=== PATIENT | female | born 1990 | race Caucasian/White ===

== ENCOUNTER → 2017-04-17 | Outpatient (REF) | payer OTHER ==
[~2017-04-17] MED LIST: ACET50TA PO; ANUS2.5C2 TOP; DOCU10ELUD PO; IBUP80TA PO; MOM30SS PO; PERCOCET PO; PRENTAB74 PO; ULTR50TA PO
== END ==
LOC: M LAB REF 17:56
PROVIDERS: ATTEND Physician Assistant
DX: M54.5 Low back pain (principal)

== ENCOUNTER 2017-06-04 14:33 | Emergency (ER) | payer OTHER | END 2017-06-04 16:17 | disposition home or self-care (01) | LOC: M ED 14:33 | DX: J02.0 Streptococcal pharyngitis (principal); L02.411 Cutaneous abscess of right axilla; J45.909 Unspecified asthma, uncomplicated; F17.210 Nicotine dependence, cigarettes, uncomplicated; Z88.2 Allergy status to sulfonamides; Z88.1 Allergy status to other antibiotic agents | CPT/HCPCS: 87880 ==

== ENCOUNTER → 2017-09-13 | Outpatient (CLI) | payer OTHER | LOC: M RAD 12:18 | DX: Z3A.13 13 weeks gestation of pregnancy (principal) | CPT/HCPCS: 76801 ==

== ENCOUNTER → 2017-09-24 | Outpatient (CLI) | payer OTHER ==
[2017-09-24 17:13] LABS: BASO % 0.3 % (0.0-1.0); EOS # 0.1 10^3/uL (0.0-0.50); EOS % 1.2 % (0.0-3.0); HEMATOCRIT 38.8 % (36.0-47.0); HEMOGLOBIN 12.9 g/dl (12.0-15.5); IMMATURE GRANULOCYTE % 0.3 % (0-3.0); LYMPH # 1.6 10^3/uL (1.5-6.5); MEAN CORPUSCULAR HEMOGLOBIN 29.8 pg (27.0-33.0); MEAN CORPUSCULAR HGB CONC 33.2 g/dl (32.0-36.5); MEAN CORPUSCULAR VOLUME 89.6 fl (80.0-96.0); MONO # 0.6 10^3/uL (0.0-0.8); NEUTROPHILS # 4.6 10^3/uL (1.8-7.7); NEUTROPHILS % 67.2 % (36.0-66.0); PLATELET COUNT, AUTOMATED 226 10^3/uL (150-450); RED BLOOD COUNT 4.33 10^6/uL (4.00-5.40); RED CELL DISTRIBUTION WIDTH 13.1 % (11.5-14.5); WHITE BLOOD COUNT 6.9 10^3/uL (4.0-10.0)
[2017-09-24 17:26] LABS: FREE T4 1.08 NG/DL (0.76-1.46); THYROID STIMULATING HORMONE 0.879 uIU/ML (0.358-3.740)
[2017-09-24 18:15] LABS: HBsAg Prenatal NEGATIVE (NEGATIVE); RUBELLA IgG QUALITATIVE IMMUNE (IMMUNE)
[2017-09-24 18:43] LABS: HEPATITIS C VIRUS ABY INDEX 0.1 INDEX (<0.8)
[2017-09-24 18:44] LABS: HIV 1&2 SCREEN CENTAUR NEGATIVE (NEGATIVE)
== END ==
LOC: M SMT 13:09
DX: Z34.81 Encounter for supervision of other normal pregnancy, first trimester (principal); Z3A.13 13 weeks gestation of pregnancy
CPT/HCPCS: 84443

== ENCOUNTER → 2017-10-08 | Outpatient (REF) | payer OTHER | LOC: M LAB REF 16:53 | DX: Z34.82 Encounter for supervision of other normal pregnancy, second trimester (principal) ==

== ENCOUNTER → 2017-10-11 | Outpatient (REF) | payer OTHER ==
[2017-10-11 15:36] LABS: CHLAMYDIA DNA AMPLIFICATION NEGATIVE (NEGATIVE); GC DNA AMPLIFICATION NEGATIVE (NEGATIVE)
== END ==
LOC: M LAB REF 12:54
DX: Z34.82 Encounter for supervision of other normal pregnancy, second trimester (principal); Z3A.00 Weeks of gestation of pregnancy not specified

== ENCOUNTER → 2017-10-20 | Outpatient (CLI) | payer OTHER | LOC: M RAD 15:08 | DX: Z34.82 Encounter for supervision of other normal pregnancy, second trimester (principal); Z36.89 Encounter for other specified antenatal screening; Z3A.18 18 weeks gestation of pregnancy | CPT/HCPCS: 76811 ==

== ENCOUNTER → 2017-11-05 | Outpatient (REF) | payer OTHER | LOC: M LAB REF 16:57 | DX: Z34.82 Encounter for supervision of other normal pregnancy, second trimester (principal); Z3A.00 Weeks of gestation of pregnancy not specified ==

== ENCOUNTER → 2017-11-25 | Outpatient (CLI) | payer OTHER | LOC: M RAD 11:27 | DX: Z34.82 Encounter for supervision of other normal pregnancy, second trimester (principal); Z36.89 Encounter for other specified antenatal screening; Z3A.24 24 weeks gestation of pregnancy | CPT/HCPCS: 76816 ==

== ENCOUNTER → 2017-12-14 | Outpatient (CLI) | payer OTHER | LOC: M RAD 10:35 | DX: Z34.82 Encounter for supervision of other normal pregnancy, second trimester (principal); Z36.89 Encounter for other specified antenatal screening; Z3A.27 27 weeks gestation of pregnancy | CPT/HCPCS: 76816 ==

== ENCOUNTER 2017-12-27 11:41 | Emergency (ER) | payer OTHER ==
[2017-12-27] MEDS: LIDOCAINE 2% MDV 20 ML VIAL SC (14:48)
== END 2017-12-27 14:59 | disposition home or self-care (01) ==
LOC: M ED 11:41
DX: O99.713 Diseases of the skin and subcutaneous tissue complicating pregnancy, third trimester (principal); L02.214 Cutaneous abscess of groin; L73.2 Hidradenitis suppurativa; Z88.1 Allergy status to other antibiotic agents; O99.333 Smoking (tobacco) complicating pregnancy, third trimester; F17.201 Nicotine dependence, unspecified, in remission; Z3A.29 29 weeks gestation of pregnancy
CPT/HCPCS: 87186

== ENCOUNTER → 2017-12-30 | Outpatient (CLI) | payer OTHER ==
[2017-12-30 13:12] LABS: HEMATOCRIT 34.7 % (36.0-47.0); HEMOGLOBIN 11.6 g/dl (12.0-15.5); MEAN CORPUSCULAR HEMOGLOBIN 31.2 pg (27.0-33.0); MEAN CORPUSCULAR HGB CONC 33.4 g/dl (32.0-36.5); MEAN CORPUSCULAR VOLUME 93.3 fl (80.0-96.0); PLATELET COUNT, AUTOMATED 353 10^3/uL (150-450); RED BLOOD COUNT 3.72 10^6/uL (4.00-5.40); RED CELL DISTRIBUTION WIDTH 13.6 % (11.5-14.5); WHITE BLOOD COUNT 8.4 10^3/uL (4.0-10.0)
[2017-12-30 13:33] LABS: GLUCOSE CHALLENGE TEST 1 HOUR 127 MG/DL (LESS THAN 140)
[2018-01-03 09:00] LABS: TYPE AND SCREEN 1 1
== END ==
LOC: M SMT 09:47
DX: Z34.82 Encounter for supervision of other normal pregnancy, second trimester (principal); Z36.89 Encounter for other specified antenatal screening
CPT/HCPCS: 82950

== ENCOUNTER 2018-02-09 19:48 | Inpatient (IN) | payer OTHER ==
[2018-02-09] MEDS ORDERED: LR 1,000 ML IV (20:14)
[2018-02-09 21:10] LABS: HEMATOCRIT 34.9 % (36.0-47.0); HEMOGLOBIN 11.6 g/dl (12.0-15.5); MEAN CORPUSCULAR HGB CONC 33.2 g/dl (32.0-36.5); MEAN CORPUSCULAR VOLUME 93.3 fl (80.0-96.0); PLATELET COUNT, AUTOMATED 221 10^3/uL (150-450); RED BLOOD COUNT 3.74 10^6/uL (4.00-5.40); RED CELL DISTRIBUTION WIDTH 13.9 % (11.5-14.5)
[2018-02-09 21:28] LABS: INR 0.94; PARTIAL THROMBOPLASTIN TIME 25.8 SECONDS (25.4-37.6); PROTHROMBIN TIME 12.7 SECONDS (12.1-14.4)
[2018-02-09] MEDS: MORPHINE 4 MG/ML 1ML VIAL/SYRINGE (J2270) IV (21:45)
[2018-02-09] MEDS ORDERED: MORPHINE 4 MG/ML 1ML VIAL/SYRINGE (J2270) As Ordered (21:46)
[2018-02-09 21:58] LABS: THYROXINE (T4) 14.1 UG/DL (4.5-12.0)
[2018-02-09] MEDS ORDERED: BICITRA 30ML SOLN UDC As Ordered (23:13)
[2018-02-09] MEDS ORDERED: ceFAZolin 2 GM/D5W 50 ML IV BAG (J0690 PER 500MG) As Ordered (23:33)
[2018-02-09] MEDS ORDERED: OXYTOCIN INJ 10 UNITS/ML VIAL (J2590) As Ordered (23:35)
[2018-02-09] MEDS ORDERED: ONDANSETRON 4MG/2ML VIAL (J2405) As Ordered (23:35)
[2018-02-09] MEDS ORDERED: MORPHINE PRES-FREE INJ 10 MG/10 ML VIAL (J2274) As Ordered (23:35)
[2018-02-09] MEDS ORDERED: MIDAZOLAM INJ 2 MG/2 ML VIAL (J2250) As Ordered (23:35)
[2018-02-10] MEDS ORDERED: ONDANSETRON 4MG/2ML VIAL (J2405) IV ×3 (00:03→04:15)
[2018-02-10] MEDS ORDERED: NALOXONE INJ 0.4 MG/1 ML VIAL (J2310) IV ×2 (00:03)
[2018-02-10] MEDS ORDERED: METOCLOPRAMIDE INJ 10MG/2ML VIAL (J2765) IV ×2 (00:03→04:15)
[2018-02-10] MEDS ORDERED: ePHEDrine SULFATE 25 MG/5 ML(5MG/ML) SYRINGE As Ordered (00:11)
[2018-02-10] MEDS ORDERED: OXYTOCIN INJ 10 UNITS/ML VIAL (J2590) As Ordered (00:35)
[2018-02-10] MEDS ORDERED: PHENYLephrine HCL 500 MCG/5 ML (100MCG/ML) SYRINGE (J2370) As Ordered (00:46)
[2018-02-10] MEDS: OXYTOCIN DRIP 30 UNITS in APPROPRIATE DILUENT 1 EA IV (01:11)
[2018-02-10] MEDS ORDERED: MEASLES,MUMPS,RUBELLA VACCINE INJ (MMR-II) (90707) SC (01:15)
[2018-02-10] MEDS ORDERED: DOCUSATE SODIUM 100 MG CAP PO (01:15)
[2018-02-10] MEDS ORDERED: PERCOCET 5MG/325MG TAB PO ×2 (01:15→04:15)
[2018-02-10] MEDS ORDERED: OXYTOCIN 30 UNITS IN 0.9% NaCl 500ML IV BAG (J2590) As Ordered (01:33)
[2018-02-10] MEDS ORDERED: KETOROLAC 30 MG/ML VIAL (J1885) As Ordered (01:44)
[2018-02-10] MEDS: KETOROLAC 30 MG/ML VIAL (J1885) IV ×3 (02:08→14:19)
[2018-02-10] MEDS ORDERED: PERCOCET 5MG/325MG TAB As Ordered (02:18)
[2018-02-10] MEDS: PERCOCET 5MG/325MG TAB PO ×2 (02:22→17:29)
[2018-02-10] MEDS ORDERED: fentaNYL 100 MCG/2 ML INJECTION (J3010) IV (04:15)
[2018-02-10] MEDS ORDERED: KETOROLAC 30 MG/ML VIAL (J1885) IV (04:15)
[2018-02-10] MEDS ORDERED: MEPERIDINE INJ 25 MG/ML VIAL (J2175) IV (04:15)
[2018-02-10] MEDS: NALBUPHINE HCL 10 MG/ML AMP (J2300) IV (04:27)
[2018-02-10] MEDS: LR 1,000 ML IV (04:40)
[2018-02-10] MEDS: PRENATAL VITAMINS CHEWABLE TABLET PO (08:49)
[2018-02-10] MEDS: INFLUENZA QUADRIVALENT PF VACCINE 0.5ML SYRINGE (90686) IM (08:49)
[2018-02-10] MEDS: diphenhydrAMINE INJ 50MG/ML VIAL (J1200) IV (11:35)
[2018-02-10 22:39] LABS: FETAL DEX (KLEIHAUER BETKE) 1 1
[2018-02-10] MEDS: IBUPROFEN 800 MG TAB PO (22:51)
[2018-02-10] MEDS: RHOGAM 300 MCG (1500 IU) INJ (J2790) IM (22:53)
[2018-02-11] MEDS: PERCOCET 5MG/325MG TAB PO (03:15)
[2018-02-11] MEDS: IBUPROFEN 800 MG TAB PO (06:14)
[2018-02-11] MEDS ORDERED: medroxyPROGESTERone ACET IM SUSP 150 MG/ML VIAL (J1050) IM (07:30)
[2018-02-11 07:47] LABS: HEMATOCRIT 25.6 % (36.0-47.0); MEAN CORPUSCULAR HEMOGLOBIN 31.3 pg (27.0-33.0); MEAN CORPUSCULAR HGB CONC 33.2 g/dl (32.0-36.5); MEAN CORPUSCULAR VOLUME 94.1 fl (80.0-96.0); PLATELET COUNT, AUTOMATED 236 10^3/uL (150-450); RED BLOOD COUNT 2.72 10^6/uL (4.00-5.40); RED CELL DISTRIBUTION WIDTH 14.4 % (11.5-14.5); WHITE BLOOD COUNT 8.1 10^3/uL (4.0-10.0)
[2018-02-11 07:49] LABS: HEMOGLOBIN 8.5 g/dl (12.0-15.5)
[2018-02-11] MEDS: PRENATAL VITAMINS CHEWABLE TABLET PO (08:58)
[2018-02-15 00:07] LABS: ANTI PARVO VIRUS LEVEL IGG 0.4 index (0.0-0.8); ANTI PARVO VIRUS LEVEL IgM 0.1 index (0.0-0.8); BETA-2 GLYCOPROTEIN I ABY IGA <9 (0-25); BETA-2 GLYCOPROTEIN I ABY IGG <9 (0-20); BETA-2 GLYCOPROTEIN I ABY IGM <9 (0-32); CARDIOLIPIN IGA ANTIBODY <9 APL U/mL (0-11); CARDIOLIPIN IGG ANTIBODY <9 GPL U/mL (0-14); CARDIOLIPIN IGM ANTIBODY <9 MPL U/mL (0-12)
[2018-02-15 11:12] LABS: DRVV SCREEN 46.2 SEC; PTT LUPUS TYPE ANTICOAG SCREEN 1.1 (0-1.2)
== END 2018-02-11 09:30 | disposition home or self-care (01) | DRG 540 ==
LOC: M LDO 19:48 → M OBS 02-10 03:30 → M LDI 20:09 → M OBS 02-10 05:53
PROVIDERS: Specialist
PROC: 10D00Z1 Extraction of Products of Conception, Low, Open Approach (ICD-10-PCS; principal; 2018-02-09 23:52)
DX: O45.93 Premature separation of placenta, unspecified, third trimester (principal); F17.210 Nicotine dependence, cigarettes, uncomplicated; O34.211 Maternal care for low transverse scar from previous cesarean delivery; Z3A.34 34 weeks gestation of pregnancy; Z37.1 Single stillbirth; O99.334 Smoking (tobacco) complicating childbirth; O36.4XX0 Maternal care for intrauterine death, not applicable or unspecified

== ENCOUNTER → 2018-10-20 | Outpatient (CLI) | payer OTHER ==
[~2018-10-20] MED LIST changes: -ACET50TA PO; +AUGM875T28 PO; +CLEO300C2 PO; -DOCU10ELUD PO; +DOCU5LIQ PO; +LORA-674 PO; +MAPA500T17 PO; +MAPA500T2 PO; +MOTR200T44 PO; +OXYC1TAB23 PO; +PREN1CHW4 PO; +VENTAER INH
--- NOTE | 2018-10-20 11:49 | REP ---
Clinical: Dating and viability. Technique: Transabdominal and transvaginal first trimester obstetrical ultrasound with color Doppler evaluation. Findings: Normal anteverted uterus measures 0.9 x 4.4 x 5.3 cm . The endometrial complex measures 16.5 mm thickness. No intrauterine identified. Bilateral ovaries are normal in appearance and vascularity without evidence for torsion. Right ovary measures 3.5 x 2.5 x 3.4 cm with 2.2 cm possibly representing corpus luteum ; R I = 0.45 . Left ovary measures 2.9 x 1.9 x 2.7 cm ; R I = 0.51 . No pelvic fluid or adnexal mass lesion . Impression: 1. No intrauterine identified. Differential diagnosis includes early as well as missed and less likely ectopic. Correlation with serial HCG levels and reevaluation may be warranted. Electronically Signed by Fabrice Perry MD 10/20/2018 11:40 A
== END ==
LOC: M RAD 10:17
PROVIDERS: ATTEND Nurse Practitioner Family
DX: Z32.01 Encounter for pregnancy test, result positive (principal); Z36.89 Encounter for other specified antenatal screening

== ENCOUNTER → 2018-10-21 | Outpatient (CLI) | payer OTHER | LOC: M LAB 10:16 | PROVIDERS: ATTEND Nurse Practitioner Family | DX: Z32.01 Encounter for pregnancy test, result positive (principal) ==

== ENCOUNTER 2018-10-22 14:56 | Emergency (ER) | payer OTHER ==
[~2018-10-22] VITALS: Ht 154.9 cm; Wt 81.8 kg
[~2018-10-22 14:56] MED LIST changes: -LORA-674 PO; -VENTAER INH
[2018-10-22] MEDS ORDERED: LORA-674 PO (15:23)
[2018-10-22 15:38] LABS: BASO # 0.1 10^3/uL (0.0-0.2); BASO % 0.5 % (0.0-1.0); EOS # 0.2 10^3/uL (0.0-0.50); EOS % 1.8 % (0.0-3.0); HEMOGLOBIN 13.8 g/dl (12.0-15.5); LYMPH # 2.9 10^3/uL (1.5-6.5); LYMPH % 26.7 % (24.0-44.0); MEAN CORPUSCULAR HEMOGLOBIN 26.4 pg (27.0-33.0); MEAN CORPUSCULAR HGB CONC 32.1 g/dl (32.0-36.5); MEAN CORPUSCULAR VOLUME 82.4 fl (80.0-96.0); MONO % 9.4 % (0.0-5.0); NEUTROPHILS # 6.7 10^3/uL (1.8-7.7); NEUTROPHILS % 61.2 % (36.0-66.0); PLATELET COUNT, AUTOMATED 403 10^3/uL (150-450); RED BLOOD COUNT 5.22 10^6/uL (4.00-5.40)
[2018-10-22 15:43] LABS: VENOUS HCO3 23.9 MEQ/L (23.0-27.0); VENOUS O2 SATURATION 51.5 % (60.0-80.0); VENOUS PARTIAL PRESSURE CO2 45.1 mmHg (38.0-50.0); VENOUS PARTIAL PRESSURE O2 29.2 mmHg (30.0-50.0); VENOUS PH 7.342 UNITS (7.330-7.430); VENOUS STANDARD HCO3 21.7 MEQ/L; VENOUS TOTAL CO2 25.3 MEQ/L (24.0-28.0)
[2018-10-22 16:07] LABS: INR 0.92; PROTHROMBIN TIME 12.5 SECONDS (12.1-14.4)
[2018-10-22 16:19] LABS: ALBUMIN 3.4 GM/DL (3.2-5.2); ALT/SGPT 23 U/L (12-78); BILIRUBIN,DIRECT 0.2 MG/DL (0.0-0.2); BILIRUBIN,TOTAL 0.6 MG/DL (0.2-1.0); BLOOD UREA NITROGEN 4 MG/DL (7-18); CALCIUM LEVEL 8.2 MG/DL (8.5-10.1); CARBON DIOXIDE LEVEL 26 MEQ/L (21-32); CHLORIDE LEVEL 108 MEQ/L (98-107); CREATININE FOR GFR 0.68 MG/DL (0.55-1.30); GLOMERULAR FILTRATION RATE > 60.0 (>60); GLUCOSE, FASTING 88 MG/DL (70-100); HCG, SERUM QUANTITATIVE 897 MIU/ML; SODIUM LEVEL 141 MEQ/L (136-145); THYROXINE (T4) 12.6 UG/DL (4.5-12.0); TOTAL PROTEIN 6.8 GM/DL (6.4-8.2)
[2018-10-22] MEDS ORDERED: IPRATROPIUM 0.5MG/ALBUTEROL 2.5MG INH SOL UD 3ML (DUONEB)(J7620) NEB ONE (17:00)
--- NOTE | 2018-10-22 17:39 | REP ---
Clinical: Shortness of breath . Comparison: None . Technique: PA Findings: The mediastinum and cardiac silhouette are normal. The lung rodarte are clear and without acute consolidation, effusion, or pneumothorax. The skeletal structures are intact and normal. Impression: 1. No acute cardiopulmonary process. Electronically Signed by Fabrice Perry MD 10/22/2018 05:31 P
[2018-10-22 17:49] VITALS: BP 129/66
[2018-10-22] MEDS ORDERED: VENTAER INH (17:56)
--- NOTE | 2018-10-22 19:41 | ECGEPIP ---
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
== END 2018-10-22 18:03 | disposition home or self-care (01) ==
LOC: M ED 14:56
DX: O99.511 Diseases of the respiratory system complicating pregnancy, first trimester (principal); J45.901 Unspecified asthma with (acute) exacerbation; O99.341 Other mental disorders complicating pregnancy, first trimester; F41.9 Anxiety disorder, unspecified; O99.331 Smoking (tobacco) complicating pregnancy, first trimester; F17.210 Nicotine dependence, cigarettes, uncomplicated; Z88.2 Allergy status to sulfonamides; Z79.899 Other long term (current) drug therapy; Z3A.00 Weeks of gestation of pregnancy not specified

== ENCOUNTER → 2018-10-25 | Outpatient (CLI) | payer OTHER ==
[~2018-10-25] MED LIST changes: +LORA-674 PO; +VENTAER INH
== END ==
LOC: M LAB 13:31
PROVIDERS: ATTEND Obstetrics & Gynecology
DX: Z32.01 Encounter for pregnancy test, result positive (principal); Z3A.00 Weeks of gestation of pregnancy not specified

== ENCOUNTER → 2020-10-18 | Outpatient (CLI) | payer OTHER | LOC: M PLALAB 09:43 | PROVIDERS: ATTEND Advanced Practice Midwife | DX: Z34.81 Encounter for supervision of other normal pregnancy, first trimester (principal) ==

== ENCOUNTER → 2020-12-05 | Outpatient (CLI) | payer OTHER ==
[2020-12-05 17:36] LABS: HEMATOCRIT 34.9 % (36.0-47.0); HEMOGLOBIN 11.7 g/dl (12.0-15.5); MEAN CORPUSCULAR HEMOGLOBIN 31.4 pg (27.0-33.0); MEAN CORPUSCULAR HGB CONC 33.5 g/dl (32.0-36.5); MEAN CORPUSCULAR VOLUME 93.6 fl (80.0-96.0); PLATELET COUNT, AUTOMATED 253 10^3/uL (150-450); RED BLOOD COUNT 3.73 10^6/uL (4.00-5.40); WHITE BLOOD COUNT 6.5 10^3/uL (4.0-10.0)
[2020-12-05 17:48] LABS: GLUCOSE CHALLENGE TEST 1 HOUR 103 MG/DL (LESS THAN 140)
[2020-12-05 18:42] LABS: HEPATITIS C VIRUS ABY INDEX 0.1 INDEX (<0.8)
[2020-12-05 18:43] LABS: GC DNA AMPLIFICATION NEGATIVE (NEGATIVE); HIV 1&2 SCREEN CENTAUR NEGATIVE (NEGATIVE)
== END ==
LOC: M PLALAB 13:57
PROVIDERS: ATTEND Advanced Practice Midwife
DX: O34.211 Maternal care for low transverse scar from previous cesarean delivery (principal)

== ENCOUNTER → 2020-12-16 | Outpatient (REF) | payer OTHER | LOC: M SFHCWAGY 16:47 | PROVIDERS: ATTEND Advanced Practice Midwife | DX: O34.219 Maternal care for unspecified type scar from previous cesarean delivery (principal) ==

== ENCOUNTER → 2020-12-25 | Outpatient (CLI) | payer OTHER ==
--- NOTE | 2020-12-25 10:33 | REP ---
INDICATION: ANATOMY. COMPARISON: None. Technologist notes state the prior exam at the ordering office. TECHNIQUE: Standard 2nd trimester anatomy screen transabdominal OB ultrasound FINDINGS: Scanning demonstrates a viable single intrauterine gestation in a transverse lie. motion is observed and heart rate is recorded at 20 beats per minute. An anterior, grade 1 placenta is seen without evidence of previa. Amniotic fluid is subjectively normal. Closed cervical length is measured at 3.9 cm transabdominally. No extrauterine abnormality is observed. No anomaly is seen. The following anatomic structures are identified and felt to be sonographically unremarkable: cranium, choroid plexus, cavum, cerebellum and posterior fossa, lungs, diaphragm, left-sided stomach, abdominal wall cord insertion, three-vessel umbilical cord, kidneys and bladder, upper and lower extremities. Biometry chart: BPD 5.0 cm; 21 weeks 0 days Head circumference 18.5 cm; 20 weeks 6 days Abdominal circumference 15.3 cm; 20 weeks 3 days Femur length 3.3 cm; 20 weeks 1 days Humeral length 3.1 cm; 20 weeks 3 days HC/AC ratio normal 1.21 Cephalic index normal 0.74 Estimated weight 354 grams, 0 pounds 12 ounces, 31st percentile for 20 weeks 5 days. IMPRESSION: Living single intrauterine gestation at 20 weeks 4 days by today's composite sonographic criteria. Expected gestational age estimate based on known EDC is 20 weeks is 5 days. Incomplete anatomy screen. The patient should return later in the 2nd trimester follow up to evaluate face and profile, nose and lips, four-chamber and ventricular outflow tracks as well as the spine. No visible anomaly in the structures included on this exam.. <Electronically signed by Lc Ruiz > 12/25/20 [id number]
== END ==
LOC: M WHC 07:28
PROVIDERS: ATTEND Obstetrics & Gynecology
DX: Z36.89 Encounter for other specified antenatal screening (principal); O34.211 Maternal care for low transverse scar from previous cesarean delivery; Z3A.20 20 weeks gestation of pregnancy

== ENCOUNTER → 2021-01-13 | Outpatient (REF) | payer OTHER | LOC: M PLALAB 15:16 | PROVIDERS: ATTEND Obstetrics & Gynecology | DX: Z36.89 Encounter for other specified antenatal screening (principal); Z3A.23 23 weeks gestation of pregnancy ==

== ENCOUNTER 2021-01-31 14:05 | Inpatient (IN) | payer OTHER ==
[~2021-01-31] VITALS: Ht 154.9 cm; Wt 90.5 kg
[~2021-01-31 14:05] MED LIST changes: +PRENTAB9 PO
[2021-01-31] MEDS ORDERED: LACTATED RINGER'S 1000 ML IV STA (14:52)
[2021-01-31] MEDS ORDERED: LORazepam 1 MG TAB PO PRN (14:55)
[2021-01-31] MEDS ORDERED: zolPIDEM TARTRATE 5 MG TAB PO PRN (14:55)
[2021-01-31] MEDS ORDERED: OXYTOCIN DRIP 30 UNITS in IV 1 EA IV PRN (14:55)
[2021-01-31] MEDS ORDERED: LIDOCAINE 1% MDV 20ML VIAL INFIL PRN (14:55)
[2021-01-31] MEDS ORDERED: METHYLERGONOVINE MALEATE 0.2 MG/ML VIAL (J2210) IM PRN (14:55)
[2021-01-31] MEDS ORDERED: RHOGAM 300 MCG (1500 IU) INJ (J2790) IM SCH (14:55)
--- NOTE | 2021-01-31 15:26 | HPEPDOC ---
Obstetrical History & Physical General Date of Admission Jan 31, 2021 at 14:05 History of Present Illness Chief Complaint: IUFD Age: 30 : 6 Term: 2 Pre-term: 1 Abortions: 2 Livin Care Care: Good Care Dating Final EDC: May 09, 2021 Final EDC by: 1st trimester (US) EGA at Admission: 25 (+5) Past Medical History Past Obstetrical History #1: Past Obstetrical History: Primgravida (2013) Type of Delivery: Ceserean section Sex of : Male (5#13) Complications: Yes (arrest @ 4cm, non reassuring status) Past Obstetrical History #2: Past Obstetrical History: Multigravida (2014) Type of Delivery: Ceserean section (repeat) Sex of : Female (6#6) Complications: No Past Obstetrical History #3: Past Obstetrical History: Multigravida (2017) Type of Delivery: Ceserean section Sex of Infant: Male (4#15) Complications: Yes ( demise, abruption) 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 BREAST: . ABDOMEN: Gravid and non-tender to touch. FETUS: Absent FH, breech by last sono. HEART RATE: Regular rate and rhythm. LUNGS: Clear to auscultation (CTA). EXTREMITIES: No edema. No clonus. Deep tendon reflexes (DTRs) + 2. Pertinent Laboratoy Data Blood Type: O- RBC Antibody Screen: Negative HIV: Negative Hepatitis B: Negative Hepatitis C: Negative Rapid Plasma Reagin: Nonreactive Rubella: Immune Chlamydia/Gonorrhea: Negative Glucose Tolerance Test: 103 Diag/Inter Therapy panorama low risk male Anatomy Ultrasound Ultrasound Date: Dec 25, 2020 Placenta Location: Anterior Normal Anatomy: Yes (incomplete scan) Placenta Previa: No Estimated Weight (grams): 354 (31%) Other Ultrasounds 01/27/2021 Absent FH. Breech, demise, edema chest, abdomen and posterior head. 399gm, EGA 20w3d Steroid Therapy Steroid Therapy: No Vaginal Examination Dilation: None Station: -3 Cervical Consistency: Firm Cervical Position: Posterior Assessment Variability: Absent Assessment/Plan Assessment Myrna is a 30-year-old (G)6 para (P)2-1-2-2 at 25+5 weeks by 6-week ultrasound. Presents to Labor and Delivery (L&D) for induction due to documented demise. Denies LOF, bleeding or UC. History significant for 3 prior sections. Plan Admit and orient. 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 Group B Streptococcus (GBS) unknown. Labs and intravenous (IV) per unit protocol. Counseled on misoprostol, laminaria, Pitocin and induction of labor (IOL). Lactated Ringers (LR): Bolus 500 mL, then saline lock. Plans to labor ad nikole Anticipate normal spontaneous delivery (). C-S as appropriate. Tawnya Cid CNM Jan 31, 2021 15:18
[2021-01-31 15:33] VITALS: BP 163/89
[2021-01-31 15:33] LABS: BASO % 0.4 % (0.0-1.0); EOS # 0.1 10^3/uL (0.0-0.5); EOS % 0.8 % (0.0-3.0); HEMATOCRIT 39.8 % (36.0-47.0); HEMOGLOBIN 13.8 g/dl (12.0-15.5); LYMPH # 2.2 10^3/uL (1.5-5.0); MEAN CORPUSCULAR HEMOGLOBIN 32.6 pg (27.0-33.0); MEAN CORPUSCULAR HGB CONC 34.7 g/dl (32.0-36.5); MEAN CORPUSCULAR VOLUME 94.1 fl (80.0-96.0); MONO # 0.6 10^3/uL (0.0-0.8); MONO % 7.1 % (2.0-8.0); NEUTROPHILS % 63.2 % (36.0-66.0); PLATELET COUNT, AUTOMATED 295 10^3/uL (150-450); RED BLOOD COUNT 4.23 10^6/uL (4.00-5.40); WHITE BLOOD COUNT 7.9 10^3/uL (4.0-10.0)
[2021-01-31 15:44] VITALS: BP 159/87
[2021-01-31 15:53] LABS: THYROXINE (T4) 15.1 UG/DL (4.5-12.0)
[2021-01-31 16:08] VITALS: BP 141/82
[2021-01-31] MEDS: LR 1,000 ML IV SCH (17:02)
--- NOTE | 2021-01-31 17:42 | IPNPDOC ---
Text Note Date of Service The patient was seen on 01/31/21. NOTE Progress Cervix visualized, cleansed with betadine x 3 Medium laminaria placed x 2 Misoprostol 400mcg placed PV afterwards Vagina packed with 2 4x4 sponges Pt tolerated procedure well. VS,Fishbone, I+O VS, Fishbone, I+O Laboratory Tests 01/31/21 15:10 Vital Signs Date Time Temp Pulse Resp B/P (MAP) Pulse Ox O2 Delivery O2 Flow Rate FiO2 01/31/21 16:08 77 141/82 (101) 01/31/21 15:44 97.8 14 Tawnya Cid CNM Jan 31, 2021 17:42
[2021-01-31 17:49] LABS: ALT/SGPT 19 U/L (12-78); BILIRUBIN,TOTAL 0.8 MG/DL (0.2-1.0); CREATININE FOR GFR 0.56 MG/DL (0.55-1.30); GLOMERULAR FILTRATION RATE > 60.0 (>60); LDH LACTATE DEHYDROGENASE 172 U/L (84-246); URIC ACID 4.1 MG/DL (2.6-6.0)
[2021-02-01] VITALS (10 sets, daily range): BP systolic 109–150; BP diastolic 54–89
[2021-02-01] MEDS ORDERED: BUTORPHANOL 2 MG/ML INJ (J0595) IV ONE (00:25)
[2021-02-01] MEDS ORDERED: PROMETHAZINE INJ 25 MG/ML VIAL (J2550) IM ONE (00:25)
[2021-02-01] MEDS: LR 1,000 ML IV SCH ×2 (00:52→04:41)
[2021-02-01] MEDS ORDERED: OXYTOCIN 30 UNITS IN 0.9% NaCl 500ML IV BAG (J2590) As Ordered ONE (04:04)
[2021-02-01] MEDS ORDERED: ACETAMINOPHEN 500 MG TAB PO PRN (05:00)
[2021-02-01] MEDS ORDERED: IBUPROFEN 600MG TAB PO PRN (05:00)
[2021-02-01] MEDS ORDERED: LR 1,000 ML IV SCH (05:00)
[2021-02-01] MEDS ORDERED: ACETAMINOPHEN TAB 650MG DOSE (2X325MG) PO PRN (05:00)
[2021-02-01] MEDS ORDERED: RHOGAM 300 MCG (1500 IU) INJ (J2790) IM SCH (05:00)
[2021-02-01] MEDS ORDERED: DOCUSATE SODIUM 100MG CAPSULE PO PRN (05:00)
[2021-02-01] MEDS ORDERED: ONDANSETRON 4MG/2ML VIAL IV PRN (05:00)
[2021-02-01] MEDS ORDERED: METHYLERGONOVINE MALEATE 0.2 MG TAB PO PRN (05:00)
[2021-02-01] MEDS ORDERED: MEASLES,MUMPS,RUBELLA VACCINE INJ (MMR-II) (90707) SC SCH (05:00)
[2021-02-01] MEDS ORDERED: IBUPROFEN 800 MG TAB PO PRN (05:00)
[2021-02-01] MEDS ORDERED: DIBUCAINE 1% OINTMENT 30GM TOP PRN (05:00)
--- NOTE | 2021-02-01 05:13 | DNPDOC ---
[facility] Delivery Note Delivery Note DATE OF DELIVERY: 02/01/21 TIME OF DELIVERY: 035 Spontaneous vaginal delivery. 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 Gregory Hansen DO FACOG ANESTHESIA: none LACERATION: none ESTIMATED BLOOD LOSS: 100 mL. FINDINGS: 570g, male. DELIVERY SUMMARY: After one dose of misoprostol 400mcg PV and two laminaria within the cervix, the baby and placenta delivered with one push (delivered en caul). The uterine fundus was noted to be firm and 2 cm below the umbilicus. One laminaria noted to have been spontaneously expelled during the delivery. The cervix, vagina, vulva and perineum were inspected. No lacerations. Excellent hemostasis was noted. Sponge, needle and instrument counts were correct per protocol. Bedside US revealed a thin, homogenous endometrial stripe (<1cm). Speculum exam/SVE : second, remaining laminaria removed from the vagina. Sponge, instrument counts correct per protocol. DO NAVDEEP Clark JONATHAN R. DO Feb 01, 2021 05:13
[2021-02-01] MEDS ORDERED: PRENATAL VITAMINS CHEWABLE TABLET PO SCH (09:00)
--- NOTE | 2021-02-01 09:39 | IPNPDOC ---
Progress Note Date of Service: Feb 01, 2021 Day#: 1 Progress Note SUBJECT: Status post of IUFD (26+ weeks). She has been ambulating, voiding spontaneously without issue and tolerating regular diet. Lochia decreasing/minimal. Pain is well-controlled. Denies headache, visual changes, right upper quadrant pain, shortness breath or chest pain. OBJECTIVE: VITAL SIGNS: Within normal limits, afebrile. Alert and oriented times three. Abdomen: Fundus firm at U-2. Soft, NTTP. ASSESSMENT: Status post uncomplicated spontaneous vaginal delivery of stillborn at 26+ weeks. Vitals within normal limits, afebrile, hemodynamically stable with no evidence of infection. PLAN: Discharge to home today. Tylenol and Motrin for pain. Routine instructions/precautions reviewed. Routine PP visit in 6 weeks in clinic. Patient states she is most interested in Mirena IUD for contraception. She will make an outpatient appointment. Anaya Hansen, VS, I&O, 24H, [place] Vital Signs/I&O Vital Signs Date Time Temp Pulse Resp B/P (MAP) Pulse Ox O2 Delivery O2 Flow Rate FiO2 02/01/21 08:30 86 118/63 (81) 02/01/21 06:39 97.7 02/01/21 06:06 18 I&O- Last 24 Hours up to 6 AM 02/01/21 05:59 Output Total 700 ml Balance -700 ml Laboratory Data 24H LABS Laboratory Tests 2 01/31/21 15:10: Immature Granulocyte % (Auto) 0.5, Neutrophils (%) (Auto) 63.2, Lymphocytes (%) (Auto) 28.0, Monocytes (%) (Auto) 7.1, Eosinophils (%) (Auto) 0.8, Basophils (%) (Auto) 0.4, Neutrophils # (Auto) 5.0, Lymphocytes # (Auto) 2.2, Monocytes # (Auto) 0.6, Eosinophils # (Auto) 0.1, Basophils # (Auto) 0.0, Nucleated Red Blood Cells % (auto) 0.0, Glomerular Filtration Rate > 60.0, Uric Acid 4.1, Total Bilirubin 0.8, Aspartate Amino Transf (AST/SGOT) 17, Alanine Aminotransferase (ALT/SGPT) 19, Lactate Dehydrogenase 172, Thyroid Stimulating Hormone (TSH) 1.060, Thyroxine (T4) 15.1H, Syphilis Serology NONREACTIVE 01/31/21 15:35: CBC/BMP Laboratory Tests 01/31/21 15:10 BEATRICE HANSEN DO Feb 01, 2021 09:39
[2021-02-01] MEDS ORDERED: IBUP80TA PO (09:54)
[2021-02-04 19:08] LABS: ANTI PARVO VIRUS LEVEL IGG 0.3 index (0.0-0.8); ANTI PARVO VIRUS LEVEL IgM 0.3 index (0.0-0.8); BETA-2 GLYCOPROTEIN I ABY IGA <9 (0-25); BETA-2 GLYCOPROTEIN I ABY IGG <9 (0-20); BETA-2 GLYCOPROTEIN I ABY IGM <9 (0-32); CARDIOLIPIN IGA ANTIBODY <9 APL U/mL (0-11); CARDIOLIPIN IGG ANTIBODY <9 GPL U/mL (0-14); CARDIOLIPIN IGM ANTIBODY 9 MPL U/mL (0-12)
== END 2021-02-01 10:06 | disposition home or self-care (01) | DRG 560 ==
LOC: M LDI 14:05
PROVIDERS: ADMIT Advanced Practice Midwife; ATTEND Obstetrics & Gynecology
PROC: 3E0P7GC Introduction of Other Therapeutic Substance into Female Reproductive, Via Natural or Artificial Opening (ICD-10-PCS; 2021-01-31)
PROC: 10E0XZZ Delivery of Products of Conception, External Approach (ICD-10-PCS; principal; 2021-02-01)
DX: O36.4XX0 Maternal care for intrauterine death, not applicable or unspecified (principal); Z37.1 Single stillbirth; F17.200 Nicotine dependence, unspecified, uncomplicated; Z3A.26 26 weeks gestation of pregnancy; O99.332 Smoking (tobacco) complicating pregnancy, second trimester

== ENCOUNTER → 2021-02-12 | Outpatient (REF) | payer OTHER, MEDICAID ==
[~2021-02-12] MED LIST changes: +ACET-897 PO; +ACET500P3 PO; +IBUP1TAB7 PO; +LABE200T32 PO; +LABE20TAB; +PROAAER10 INH
[2021-02-12 14:23] LABS: CREATININE,RANDOM URINE 25.9 MG/DL; TOTAL PROTEIN,RANDOM URINE < 5.0 MG/DL (0.0-12.0)
== END ==
LOC: M SFHCWAGY 12:50
PROVIDERS: ATTEND Obstetrics & Gynecology
DX: I10 Essential (primary) hypertension (principal)

== ENCOUNTER 2021-02-13 14:44 | Emergency (ER) | payer OTHER ==
[~2021-02-13] VITALS: Ht 154.9 cm; Wt 91.7 kg
[~2021-02-13 14:44] MED LIST changes: -ACET-897 PO; -ACET500P3 PO; -IBUP1TAB7 PO; -LABE200T32 PO; -LABE20TAB; -PROAAER10 INH
[2021-02-13] MEDS ORDERED: ACET500P3 PO (14:56)
[2021-02-13] MEDS ORDERED: LABE20TAB (14:56)
--- NOTE | 2021-02-13 17:21 | REPVR ---
PROCEDURE INFORMATION: Exam: CT Head Without Contrast Exam date and time: 02/13/2021 4:57 PM Age: 30 years old Clinical indication: Dizziness; Additional info: 2 weeks post , HTN, dizziness, HUDSON TECHNIQUE: Imaging protocol: Computed tomography of the head without contrast.Axial and coronal reformatted images were created and reviewed. Radiation optimization: All CT scans at this facility use at least one of these dose optimization techniques: automated exposure control; mA and/or kV adjustment per patient size (includes targeted exams where dose is matched to clinical indication); or iterative reconstruction. COMPARISON: No relevant prior studies available. FINDINGS: Brain: No CT evidence of acute intracranial hemorrhage or acute territorial infarction. No significant mass effect or midline shift. Basal cisterns patent. Cerebral ventricles: Normal in size and configuration. Paranasal sinuses: Unremarkable. No fluid levels. Mastoid air cells: Grossly unremarkable. Bones/joints: No acute osseous abnormality. Soft tissues: Scattered sebaceous cysts in the scalp. IMPRESSION: No CT evidence of acute intracranial pathology. Electronically signed by: Iglesia Dunne On 02/13/2021 17:21:18 PM
[2021-02-13] MEDS ORDERED: KETOROLAC 30 MG/ML 1ML VIAL IV ONE (17:40)
[2021-02-13] MEDS ORDERED: METOCLOPRAMIDE INJ 10MG/2ML VIAL (J2765 PER 1) IV ONE (17:40)
[2021-02-13] MEDS ORDERED: diphenhydrAMINE 50MG/ML VIAL (J1200) IV ONE (17:40)
[2021-02-13 17:43] LABS: BASO % 0.4 % (0.0-1.0); EOS # 0.1 10^3/uL (0.0-0.5); EOS % 1.6 % (0.0-3.0); HEMATOCRIT 37.1 % (36.0-47.0); HEMOGLOBIN 12.6 g/dl (12.0-15.5); LYMPH # 2.3 10^3/uL (1.5-5.0); LYMPH % 32.1 % (24.0-44.0); MEAN CORPUSCULAR HEMOGLOBIN 32.6 pg (27.0-33.0); MEAN CORPUSCULAR VOLUME 96.1 fl (80.0-96.0); MONO # 0.4 10^3/uL (0.0-0.8); MONO % 6.1 % (2.0-8.0); NEUTROPHILS # 4.2 10^3/uL (1.5-8.5); NEUTROPHILS % 59.4 % (36.0-66.0); PLATELET COUNT, AUTOMATED 258 10^3/uL (150-450); RED BLOOD COUNT 3.86 10^6/uL (4.00-5.40)
[2021-02-13 19:16] LABS: BLOOD UREA NITROGEN 5 MG/DL (7-18); CREATININE FOR GFR 0.68 MG/DL (0.55-1.30); GLUCOSE, FASTING 82 MG/DL (70-100)
[2021-02-13 19:17] LABS: ALT/SGPT 25 IU/L (0-32); CALCIUM LEVEL 8.8 MG/DL (8.5-10.1); CARBON DIOXIDE LEVEL 25 mmol/L (20-29); CHLORIDE LEVEL 112 MEQ/L (98-107); CPK CREATINE PHOSPHOKINASE 51 U/L (26-192); GLOMERULAR FILTRATION RATE > 60.0 (>60); POTASSIUM SERUM 3.7 MEQ/L (3.5-5.1); SODIUM LEVEL 143 MEQ/L (136-145)
[2021-02-13] MEDS ORDERED: LABE200T32 PO (19:17)
[2021-02-13] MEDS ORDERED: IBUP1TAB7 PO (19:17)
[2021-02-13] MEDS ORDERED: PROAAER10 INH (19:17)
[2021-02-13] MEDS ORDERED: ACET-897 PO (19:17)
[2021-02-13 19:18] LABS: ALBUMIN 3.2 GM/DL (3.2-5.2); BILIRUBIN,DIRECT 0.2 MG/DL (0.0-0.2); BILIRUBIN,TOTAL 0.8 MG/DL (0.2-1.0); CK-MB VALUE MASS < 1.0 NG/ML (<3.6); MB/CK RELATIVE INDEX 1.96 (< OR =4); TOTAL PROTEIN 6.1 GM/DL (6.4-8.2)
[2021-02-13] MEDS ORDERED: HOME MED LIST COMPLETE! XX SCH (19:20)
[2021-02-13 19:26] LABS: CREATININE,RANDOM URINE 41.6 MG/DL; TOTAL PROTEIN,RANDOM URINE < 5.0 MG/DL (0.0-12.0)
[2021-02-13 20:30] VITALS: BP 124/57
--- NOTE | 2021-02-14 05:20 | ECGEPIP ---
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
== END 2021-02-13 19:19 | disposition admitted as inpatient to this hospital (09) ==
LOC: M ED 14:44
DX: O14.92 Unspecified pre-eclampsia, second trimester (principal); Z87.59 Personal history of other complications of pregnancy, childbirth and the puerperium; O99.332 Smoking (tobacco) complicating pregnancy, second trimester; Z3A.25 25 weeks gestation of pregnancy; Z88.2 Allergy status to sulfonamides
CPT/HCPCS: 70450; 80048; 80076; 81001; 82550; 82553; 82570; 83735; 84156; 85025; 93005; 93041; 94760; 96374; 96375; 99285; J1200; J1885; J2765; U0002

== ENCOUNTER 2021-02-13 20:52 | Inpatient (IN) | payer OTHER ==
[2021-02-13] VITALS (8 sets, daily range): BP systolic 115–165; BP diastolic 55–76
[~2021-02-13 20:52] MED LIST changes: +ACET-897 PO; +ACET500P3 PO; +IBUP1TAB7 PO; +LABE200T32 PO; +LABE20TAB; +PROAAER10 INH
[2021-02-13] MEDS ORDERED: LABETALOL 100MG/20ML VIAL IV ONE (21:00)
[2021-02-13] MEDS ORDERED: CALCIUM GLUCONATE 1,000 MG in D5W MINI-BAG PLUS 100 ML IV PRN (21:00)
[2021-02-13] MEDS ORDERED: MAG Sulf (L&D) 4 GM/100 ML 4 GM in IV 1 EA IV ONE (21:00)
[2021-02-13 21:24] LABS: HEMATOCRIT 34.6 % (36.0-47.0); HEMOGLOBIN 11.8 g/dl (12.0-15.5); MEAN CORPUSCULAR HEMOGLOBIN 32.6 pg (27.0-33.0); MEAN CORPUSCULAR HGB CONC 34.1 g/dl (32.0-36.5); MEAN CORPUSCULAR VOLUME 95.6 fl (80.0-96.0); PLATELET COUNT, AUTOMATED 246 10^3/uL (150-450); RED BLOOD COUNT 3.62 10^6/uL (4.00-5.40); WHITE BLOOD COUNT 6.9 10^3/uL (4.0-10.0)
[2021-02-13 21:53] LABS: ALBUMIN 3.1 GM/DL (3.2-5.2); ALT/SGPT 22 U/L (12-78); BILIRUBIN,TOTAL 0.8 MG/DL (0.2-1.0); BLOOD UREA NITROGEN 5 MG/DL (7-18); CALCIUM LEVEL 8.3 MG/DL (8.5-10.1); CARBON DIOXIDE LEVEL 23 MEQ/L (21-32); CHLORIDE LEVEL 110 MEQ/L (98-107); CREATININE FOR GFR 0.69 MG/DL (0.55-1.30); GLOMERULAR FILTRATION RATE > 60.0 (>60); GLUCOSE, FASTING 85 MG/DL (70-100); POTASSIUM SERUM 3.7 MEQ/L (3.5-5.1); SODIUM LEVEL 144 MEQ/L (136-145); TOTAL PROTEIN 5.9 GM/DL (6.4-8.2)
[2021-02-13] MEDS: MAG Sulf (OBGYN) 20GM/500ML 20,000 MG in IV 1 EA IV SCH (22:56)
[2021-02-14] VITALS (30 sets, daily range): BP systolic 90–144; BP diastolic 50–77
[2021-02-14] MEDS: LR 1,000 ML IV SCH ×2 (04:15→21:13)
[2021-02-14 06:47] LABS: HEMATOCRIT 37.1 % (36.0-47.0); HEMOGLOBIN 12.5 g/dl (12.0-15.5); MEAN CORPUSCULAR HEMOGLOBIN 32.7 pg (27.0-33.0); MEAN CORPUSCULAR HGB CONC 33.7 g/dl (32.0-36.5); MEAN CORPUSCULAR VOLUME 97.1 fl (80.0-96.0); PLATELET COUNT, AUTOMATED 263 10^3/uL (150-450); RED BLOOD COUNT 3.82 10^6/uL (4.00-5.40); WHITE BLOOD COUNT 6.7 10^3/uL (4.0-10.0)
[2021-02-14] MEDS: MAG Sulf (OBGYN) 20GM/500ML 20,000 MG in IV 1 EA IV SCH ×2 (08:15→19:02)
[2021-02-14] MEDS: LABETALOL 200 MG TAB PO SCH ×2 (09:07→21:29)
[2021-02-14] MEDS ORDERED: ACETAMINOPHEN 500 MG TAB PO ONE (21:35)
[2021-02-15] VITALS (10 sets, daily range): BP systolic 98–138; BP diastolic 53–69
[2021-02-15 06:36] LABS: HEMATOCRIT 34.4 % (36.0-47.0); HEMOGLOBIN 11.6 g/dl (12.0-15.5); MEAN CORPUSCULAR HEMOGLOBIN 32.5 pg (27.0-33.0); MEAN CORPUSCULAR HGB CONC 33.7 g/dl (32.0-36.5); MEAN CORPUSCULAR VOLUME 96.4 fl (80.0-96.0); PLATELET COUNT, AUTOMATED 256 10^3/uL (150-450); RED BLOOD COUNT 3.57 10^6/uL (4.00-5.40); WHITE BLOOD COUNT 5.7 10^3/uL (4.0-10.0)
[2021-02-15] MEDS ORDERED: INFLUENZA QUADRIVALENT PF VACCINE 0.5ML SYRINGE IM ONE (09:00)
== END 2021-02-15 09:43 | disposition home or self-care (01) | DRG 561 ==
LOC: M LDO 20:52 → M LDI 23:06 → EEVIPCON 23:06
PROVIDERS: ADMIT Obstetrics & Gynecology; ATTEND Specialist
DX: O14.15 Severe pre-eclampsia, complicating the puerperium (principal); Z79.899 Other long term (current) drug therapy

== ENCOUNTER → 2021-02-13 | Outpatient (CLI) | payer OTHER ==
[2021-02-13 11:02] LABS: CREATININE,RANDOM URINE 19.1 MG/DL; TOTAL PROTEIN,RANDOM URINE 5.9 MG/DL (0.0-12.0)
[2021-02-13 11:19] LABS: ALBUMIN 3.2 GM/DL (3.2-5.2); ALT/SGPT 21 U/L (12-78); BILIRUBIN,TOTAL 0.9 MG/DL (0.2-1.0); BLOOD UREA NITROGEN 4 MG/DL (7-18); CALCIUM LEVEL 8.7 MG/DL (8.5-10.1); CARBON DIOXIDE LEVEL 24 MEQ/L (21-32); CHLORIDE LEVEL 109 MEQ/L (98-107); CREATININE FOR GFR 0.71 MG/DL (0.55-1.30); GLOMERULAR FILTRATION RATE > 60.0 (>60); GLUCOSE, FASTING 90 MG/DL (70-100); POTASSIUM SERUM 4.1 MEQ/L (3.5-5.1); SODIUM LEVEL 143 MEQ/L (136-145)
[2021-02-13 11:51] LABS: HEMATOCRIT 37.3 % (36.0-47.0); HEMOGLOBIN 12.4 g/dl (12.0-15.5); MEAN CORPUSCULAR HEMOGLOBIN 32.7 pg (27.0-33.0); MEAN CORPUSCULAR HGB CONC 33.2 g/dl (32.0-36.5); MEAN CORPUSCULAR VOLUME 98.4 fl (80.0-96.0); PLATELET COUNT, AUTOMATED 279 10^3/uL (150-450); RED BLOOD COUNT 3.79 10^6/uL (4.00-5.40); WHITE BLOOD COUNT 7.8 10^3/uL (4.0-10.0)
== END ==
LOC: M PLALAB 08:55
PROVIDERS: ATTEND Obstetrics & Gynecology
DX: I10 Essential (primary) hypertension (principal)

== ENCOUNTER 2021-03-20 10:37 | Emergency (ER) | payer MEDICAID, OTHER ==
[~2021-03-20] VITALS: Ht 154.9 cm; Wt 83.6 kg
--- OUTSIDE RECORDS SUMMARY | 2021-03-20 10:46 | CCD ---
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 Name Role Phone Azeemvasyl Vivien Unavailable PROBLEMS Type Condition ICD9-CM Code WWT10-FB Code Onset Dates Condition S tatus W/U Status Risk SNOMED Code Notes Problem Blood pressure check Z01.30 Active confirmed 978770242 Problem Hidradenitis suppurativa 705.83 Active confirmed 33355639 Problem Obesity 278.00 Active confirmed 690696446 Problem depression F53.0 Active confirmed 139511646352720 Problem 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 Active confirmed 819861451 Problem 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.1 Active confirmed 931129916 Problem Supervision of other normal Z34.80 Ac tive confirm 417938608 Problem Hypertension I10 Active confirmed 3300244 3 Problem Unspecified maternal hypertension, complicating the pu erperium O16.5 Active confirmed ALLERGIES Allergen (clinical drug ingredient) Drug/Non Drug Allergy do cumented on EMR Reaction Allergy Type Onset Date Status sulfamethoxazole / trimethoprim Bactrim DS([facility] Code:21270-09 46-01) Nausea/Vomiting Drug Allergy Active ENCOUNTERS from 1990 to 2021-03-14 Encounter Location Date Provider Diagnosis [facility] [address] [phone] [place] [address] Feb, Vivien Pino Other mental disorde rs complicating the puerperium O99.345 ; 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 and depression F53.0 IMMUNIZATIONS No Information SOCIAL HISTORY Sex Assigned At : Social History Observation Description Sex Assigned At Unknown Domestic Violence: Question Answer Notes Status: No history of abuse REASON FOR REFERRAL No Information VITAL SIGNS Weight 189 lbs Feb, Height 61.75 in Feb, BMI 34.85 kg/m2 Feb, Blood pressure systolic 136 mm Hg Feb, Blood pressure diastolic 78 mm Hg Feb, MEDICATIONS Medication SIG (Take, Route, Frequency, Duration) Notes Start Da te End Date Status Albuterol Sulfate HFA 108 (90 Base) MCG/ACT 2 puffs as needed Inhalation every 4 hrs for 30 day(s) Dec, Active Tylenol 325 MG 2 tabs as needed Orally every 6 hrs Not-Taking Robitussin DM 100-10 MG/5ML 10 ml as needed Orally every 4 hrs Dec, Not-Taking PARoxetine HCl 10 MG 1 tablet in the morning Orally Once a day Active 27-1 MG 1 tablet Orally Once a day Not-Taking Ibuprofen 800 MG 1 tablet with food or milk as needed Ora lly Three times a day Active busPIRone HCl 5 MG 1 tablet Orally Three times a day for 30 days Jan, Not-Taking Tylenol Extra Strength 500 MG 2 tablets as needed Orally every 6 hrs Active Labetalol HCl 200 MG 1 tablet Orally Twice a day for 30 day(s) Jan, Not-Taking PROCEDURES No Information RESULTS No Results REASON FOR VISIT anxiety MEDICAL (GENERAL) HISTORY Type Description Date Medical History asthma Medical History MRSA Medical History anxiety Medical History HTN Surgical History C section Hospitalization History childbirth Goals Section No Information Health Concerns No Information MEDICAL EQUIPMENT No Information MENTAL STATUS No Information FUNCTIONAL STATUS No Information ASSESSMENTS Encounter Date Diagnosis Assessment Notes Treatment Notes Treatm ent Clinical Notes Feb, Other mental disorders compl icating the puerperium (ICD-10 - O99.345) Feb, Other specified anxiety disorders (ICD-10 - F41. 8) Feb, depression (ICD-10 - F53.0) PLAN OF TREATMENT Next Appt Details Provider Name:Gregory Hansen, 10:40:00 AM, [address] [place] [address] , [place], [address], Provider Name:Cyril Trotter 2021-05-02 07:30:00 AM, [address] [place] [address] , [place], [address], Provider Name:Isis Sanchez, 2021-05-02 0 7:30:00 AM, [address], , [place], [address], Insurance Providers Payer Name Payer Address Payer Phone Insured Name Patient Relati onship to Insured Coverage Start Date Coverage End Date [facility] [address] [facility] [phone] DANE HENNESSY self
--- OUTSIDE RECORDS SUMMARY | 2021-03-20 10:47 | CCD ---
Author Author [facility] Organization 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 Role Phone Beau Mckenna Unavailable PROBLEMS Type Condition ICD9-CM Code AVS68-MG Code Onset Dates Condition S tatus W/U Status Risk SNOMED Code Notes Problem Blood pressure check Z01.30 Active confirmed 076662272 Problem Unspecified maternal hypertension, complicating the pu erperium O16.5 Active confirmed Problem Hypertension I10 Active confirmed 1617615 3 Problem Hidradenitis suppurativa 705.83 Active confirmed 77045628 Problem Obesity 278.00 Active confirmed 814626430 Problem 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.1 Active confirmed 780656508 Problem Supervision of other normal Z34.80 Ac tive confirm 870340339 ALLERGIES Allergen (clinical drug ingredient) Drug/Non Drug Allergy do cumented on EMR Reaction Allergy Type Onset Date Status sulfamethoxazole / trimethoprim Bactrim DS([facility] Code:79216-04 46-01) Nausea/Vomiting Drug Allergy Active ENCOUNTERS from 1990 to 2021-03-07 Encounter Location Date Provider Diagnosis [facility] [address] [facility] [phone] [place] [address] Feb, Mckenna Yanez IMMUNIZATIONS No Information SOCIAL HISTORY Sex Assigned At : Social History Observation Description Sex Assigned At Unknown Domestic Violence: Question Answer Notes Status: No history of abuse REASON FOR REFERRAL No Information VITAL SIGNS No information MEDICATIONS Medication SIG (Take, Route, Frequency, Duration) Notes Start Da te End Date Status Albuterol Sulfate HFA 108 (90 Base) MCG/ACT 2 puffs as needed Inhalation every 4 hrs for 30 day(s) 27 Aug, 2013 Active busPIRone HCl 5 MG 1 tablet Orally Three times a day for 30 days Jan, Active Tylenol Extra Strength 500 MG 2 tablets as needed Orally every 6 hrs Active Labetalol HCl 200 MG 1 tablet Orally Twice a day for 30 day(s) Jan, Not-Taking Tylenol 325 MG 2 tabs as needed Orally every 6 hrs Not-Taking 27-1 MG 1 tablet Orally Once a day Not-Taking Ibuprofen 800 MG 1 tablet with food or milk as needed Ora lly Three times a day Active Robitussin DM 100-10 MG/5ML 10 ml as needed Orally every 4 hrs Dec, Not-Taking PROCEDURES No Information RESULTS No Results REASON FOR VISIT anxiety MEDICAL (GENERAL) HISTORY Type Description Date Medical History asthma Medical History MRSA Medical History anxiety Surgical History C section Hospitalization History childbirth Goals Section No Information Health Concerns No Information MEDICAL EQUIPMENT No Information MENTAL STATUS No Information FUNCTIONAL STATUS No Information ASSESSMENTS No Information PLAN OF TREATMENT Medication Medication Name Sig Start Date Stop Date busPIRone HCl 5 MG 1 tablet Orally Three times a day for 30 days Jan, Next Appt Details Provider Name:Vivien Pino, 2021-02-28 1 08:00:00 AM, [address] [place] [address], [phone], Provider Name:Gregory Hansen, 10:40:00 AM, [address] [place] [address], [place], [phone], Provider Name:Cyril Trotter, 2021-05-02 07:30:00 AM, [address] [place] [address], [place], [phone], Provider Name:Isis Sanchez, 2021-05-02 0 7:30:00 AM, [address] [place] [address], [place], [phone], Insurance Providers Payer Name Payer Address Payer Phone Insured Name Patient Relati onship to Insured Coverage Start Date Coverage End Date COUNT INCLUDES THE [facility]AN [facility] [address] [facility] [phone] DANE HENNESSY self
--- OUTSIDE RECORDS SUMMARY | 2021-03-20 10:47 | CCD ---
Author Organization Unknown Address [address] [place] [address] Phone [phone] Care Team Providers Care Transportation Services Representative Name Role Phone Isai Kohler Unavailable Unavailable Allergies Code Code System Name Reaction Severity Status Onset 370368 RxNorm Bactrim Ds Nausea Active 06/09/2017 1827 RxNorm Buspirone Deactivated Notes: BACTRIM DS (SULFAMETHOXAZOLE-TRIM ETHOPRIM) Medications Name Status Start Date Stop Date albuterol sulf 90 mcg/actuation breath a ctivated powder inhaler,sensor Inhale 2 puffs every 4 hours by inhalation route. Active Not available albuterol sulfate HFA 90 mcg/actuation a erosol inhaler INHALE 2 PUFFS BY MOUTH EVERY 4 HOURS NEEDED FOR SHORTNESS OF BREATH Active Not available amlodipine 5 mg tablet TAKE 1 TABLET BY MOUTH ONCE DAILY Active Not a vailable amoxicillin 875 mg tablet TAKE 1 TABLET BY MOUTH EVERY 12 HOURS FOR 10 DAYS Completed 03/03/2021 buspirone 5 mg tablet Take 1 tablet twice a day by oral route. Completed 03/07/2021 hydroxyzine HCl 25 mg tablet TAKE 1 TABLET BY MOUTH THREE TIMES DAILY Active Not available ibuprofen 800 mg tablet TAKE 1 TABLET BY MOUTH EVERY 8 HOURS NEEDED FOR PAIN LEVEL 6 10 Active Not available labetalol 200 mg tablet TAKE 1 TABLET BY MOUTH TWICE DAILY Completed 08/2020 nicotine (polacrilex) 4 mg gum Chew 1 piece of gum every 2 hours by oral route as needed. Active Not available paroxetine 10 mg tablet TAKE 1 TABLET BY MOUTH ONCE DAILY Active Not a vailable Problems Name Status Onset Date Source Abscess of Limb Active 06/09/2017 History Generalized Anxiety Disorder Active 07/01/2017 His tory Tobacco User Active 02/28/2021 Elevated Blood-pressure Reading without Diagnosis of Hyperte nsion Active 02/28/2021 Procedures Notes: 2 c -sections Results Lab Results Date Name Specimen Result Interpretation Description Value Range Status Address 03/07/2021 Urinalysis, Dipstick, Auto Normal Bilirubin ne g Final [facility]: [address] [facility] ABNORMAL Blood 3+ Final [facility]: [address] [facility] Normal Glucose neg Final [facility]: [address] [facility] Normal Ketone neg Final [facility] Normal Leukocytes neg Final [facility]: [address] [facility] Normal Nitrite neg Final [facility]: [address] [facility] Normal Ph 6.0 Final [facility] [address] [facility] Normal Protein neg Final [facility]: [address] [facility] Normal Specific [place] 1.000 Final [facility]: [address] [facility] Normal Urobilinogen 0.2 Final Ma in [facility]: [address] [facility] 03/05/2021 CBC W/ Auto Diff Wbc 8.0 K/mm3 4.0-10. 0 K/mm3 Final [facility] ([facility]): 4 [facility] Rbc 4.70 M/mm3 4.00-5.50 M/mm3 [facility] ([facility]): 4 [facility] Hgb 14.8 gm/dL 12.0-16.0 gm/dL [facility] ([facility]): 4 [facility] Hct 42.6 % 36.0-48.8 % [facility] ([facility]): 4 [facility] Mcv 90.6 fL 80-96 fL Final [facility]): 4 [facility] High Mch 31.5 pg 27.0-31.0 pg Final [facility] ([facility]): 4 [facility] Mchc 34.7 g/dL 32.0-36.0 g/dL Final [facility] ([facility]): 4 [facility] Rdw 12.6 % 10.0-14.5 % [facility] ([facility]): 4 [facility] Plt 365 K/mm3 172-450 K/mm3 [facility] ([facility]): 4 [facility] Mpv 9.6 fL 9.0-13.0 fL [facility] ([facility]): 4 [facility] Gr% 61.8 % 50-80.0 % [facility] 4 [facility] Ig% 0.1 % 0.0-0.2 % [facility] 4 [facility] Ly% 29.7 % 25.0-50.0 % [facility] ([facility]): 4 [facility] Mo% 7.0 % 2.0-10.0 % [facility] ([facility]): 4 [facility] Eo% 1.1 % 0-5.0 % [facility] 4 [facility] Ba% 0.3 % 0.0-2.0 % [facility] 4 [facility] Gr# 4.9 K/mm3 2.0-8.00 K/mm3 Final [facility] ([facility]): 4 [facility] Ig# 0.0 K/mm3 0.0-0.2 K/mm3 Final [facility] ([facility]): 4 [facility] Ly# 2.4 K/mm3 1.0-5.0 K/mm3 Final [facility] ([facility]): 4 [facility] Mo# 0.6 K/mm3 0.10-1.20 K/mm3 Final [facility] ([facility]): 4 [facility] Eo# 0.1 K/mm3 0.0-0.5 K/mm3 Final [facility] ([facility]): 4 [facility] Ba# 0.0 K/mm3 0.0-0.2 K/mm3 Final [facility] ([facility]): 4 [facility] 03/05/2021 Gas Panel, Venous Blood High Vph 7.43 7.3 1-7.41 Final [facility] ([facility]): 4 [facility] Low Vpco2 35.1 mmHg 41-51 mmHg Final [facility] ([facility]): 4 [facility] Vpo2 38 mmHg 35-42 mmHg Final [facility] ([facility]): 4 [facility] Vo2 Sat 70.8 % 68-77 % [facility] ([facility]): 4 [facility] Low Vhco3 22.9 mEq/L 24.0-25.0 mEq/L [facility] ([facility]): 4 [facility] Vbe -0.4 -3.0-3.0 [facility] ([facility]): 4 [facility] Vctco2 23.9 mmol/L 23.0-32.0 mmol/L [facility] ([facility]): 4 [facility] 03/05/2021 Urinalysis Complete, Reflex Culture Ucol yellow [facility] ([facility]): 4 [facility] Uapp clear [facility] ([facility]): 4 [facility] Ugl negative mg/dL negative mg/dL [facility] ([facility]): 4 [facility] Ubil negative negative [facility] ([facility]): 4 [facility] Uket negative mg/dL negative mg/dL F [facility] ([facility]): 4 [facility] Low Sgu < 1.005 1.005-1.030 Final [facility] ([facility]): 4 [facility] High Ubl Reflex 3+(large) negative [facility] ([facility]): 4 [facility] Chidi 6.0 5.0-9.0 [facility] ([facility]): 4 [facility] Upro Reflex negative mg/dL negative mg/dL [facility] ([facility]): 4 [facility] Uuro normal(0.2-1) mg/dL 0-1 mg/dL F [facility] ([facility]): 4 [facility] Unit Reflex negative negative [facility] ([facility]): 4 [facility] Ule Reflex negative negative [facility] ([facility]): 4 [facility] 03/05/2021 Urine Microscopic Urbc 1-3 /hpf 0-3 /hp f [facility] ([facility]): 4 [facility] 03/05/2021 TSH, Serum or Plasma Tsh 0.862 uI U/mL 0.358-3.74 uIU/mL [facility] ([facility]): 4 [facility] 03/05/2021 Partial Thromboplastin Time Ptt 2 5.1 seconds 21.2-27.3 seconds [facility] ([facility]): 4 [facility] 03/05/2021 D-dimer, Quant, Plasma Dd 0.37 m g/lfeu 0.19-0.60 mg/lfeu [facility] ([facility]): 4 [facility] 03/05/2021 Prothrombin Time Ptp 10.8 seconds 9.1- 11.6 seconds [facility] ([facility]): 4 [facility] Inr 1.04 0.87-1.06 Final [facility] ([facility]): 4 [facility] 03/05/2021 CMP, Serum or Plasma Glu 101 mg/dL 74- 106 mg/dL [facility] ([facility]): 4 [facility] Low Bun 2 mg/dL 7-18 mg/dL [facility] ([facility]): 4 [facility] Cre 0.80 mg/dL 0.6-1.0 mg/dL [facility] ([facility]): 4 [facility] Na 141 mmol/L 136-145 mmol/L [facility] ([facility]): 4 [facility] Low K 3.0 mmol/L 3.5-5.1 mmol/L [facility] ([facility]): 4 [facility] Cl 103 mmol/L 98-107 mmol/L [facility] ([facility]): 4 [facility] Co2 25 mmol/L 21-32 mmol/L [facility] ([facility]): 4 [facility] Ca 9.4 mg/dL 8.5-10.1 mg/dL [facility] ([facility]): 4 [facility] High Gap 13.0 mmol/L 5-12 mmol/L [facility] ([facility]): 4 [facility] Gfr 84 mL/min Final [facility] ([facility]): 4 [facility] Low Ast 14 U/L 15-37 U/L [facility] ([facility]): 4 [facility] Alt 23 U/L 12-78 U/L Final [facility] ([facility]): 4 [facility] Alk 105 U/L 46-116 U/L [facility] ([facility]): 4 [facility] Tbili 0.8 mg/dL 0.2-1.0 mg/dL [facility] ([facility]): 4 [facility] Tp 7.8 g/dL 6.4-8.2 g/dL [facility] ([facility]): 4 [facility] Alb 4.0 gm/dL 3.4-5.0 gm/dL [facility] ([facility]): 4 [facility] 03/05/2021 Magnesium, Serum or Plasma mg 1.8 mg/ dL 1.8-2.4 mg/dL [facility] ([facility]): 4 [facility] 03/05/2021 Troponin-high Sensitivity Trophs < 4.0 NG/L 0-60.4 NG/L [facility] ([facility]): 4 [facility] 03/05/2021 CK (Creatine Kinase), Total, Serum C pk 64 U/L 26-192 U/L [facility] ([facility]): 4 [facility] 03/05/2021 Lipase, Serum or Plasma Lip 117 U/L 73 -393 U/L [facility] ([facility]): 4 [facility] 03/05/2021 HCG,urine Uhcg negative negative [facility] ([facility]): 4 [facility] 02/17/2021 CMP, Serum or Plasma Glu 90 mg/dL 74-1 06 mg/dL [facility] ([facility]): 4 [facility] Low Bun 5 mg/dL 7-18 mg/dL [facility] ([facility]): 4 [facility] Cre 0.81 mg/dL 0.6-1.0 mg/dL [facility] ([facility]): 4 [facility] Na 141 mmol/L 136-145 mmol/L [facility] ([facility]): 4 [facility] K 3.8 mmol/L 3.5-5.1 mmol/L Final [facility] ([facility]): 4 [facility] Cl 104 mmol/L 98-107 mmol/L [facility] ([facility]): 4 [facility] Co2 26 mmol/L 21-32 mmol/L Final [facility] ([facility]): 4 [facility] Ca 9.1 mg/dL 8.5-10.1 mg/dL [facility] ([facility]): 4 [facility] Gap 11.0 mmol/L 5-12 mmol/L [facility] ([facility]): 4 [facility] Gfr 82 mL/min [facility] ([facility]): 4 [facility] Ast 19 U/L 15-37 U/L [facility] ([facility]): 4 [facility] Alt 22 U/L 12-78 U/L Final [facility] ([facility]): 4 [facility] Alk 107 U/L 46-116 U/L [facility] ([facility]): 4 [facility] Tbili 0.6 mg/dL 0.2-1.0 mg/dL [facility] ([facility]): 4 [facility] Tp 7.1 g/dL 6.4-8.2 g/dL Final [facility] ([facility]): 4 [facility] Alb 3.7 gm/dL 3.4-5.0 gm/dL [facility] ([facility]): 4 [facility] 02/17/2021 CK (Creatine Kinase), Total, Serum C pk 62 U/L 26-192 U/L [facility] ([facility]): 4 [facility] 02/17/2021 Magnesium, Serum or Plasma mg 1.9 mg/ dL 1.8-2.4 mg/dL [facility] ([facility]): 4 [facility] 02/17/2021 Lipase, Serum or Plasma Lip 103 U/L 73 -393 U/L [facility] ([facility]): 4 [facility] 02/17/2021 Troponin-high Sensitivity Trophs 4.2 NG /L 0-60.4 NG/L [facility]): 4 [facility] 02/17/2021 TSH, Serum or Plasma Tsh 1.916 uI U/mL 0.358-3.74 uIU/mL [facility]): 4 [facility] Past Encounters 03/07/2021 Tobacco User; Bilirubin in Urine - Finding; Acute Hypokalemia; Blood in Urine; Generalized Anxiety Disorder; Elevated Blood-pressure Reading without Diagnosis of Hypertension Isai Kohler MD: [address] [place] [phone], Ph. 03/03/2021 Tobacco User; Generalized Anxiety Disorder; Palpitations Isai Kohler MD: [address] [place] [phone], Ph. 02/28/2021 Elevated Blood-pressure Reading without Diagnosis of Hypertension; Generalized Anxiety Disorder; Tobacco User Isai Kohler MD: [address] [place] [phone], Ph. Social History Tobacco Smoking Status Heavy Tobacco Smoker (1 pack per a da y) Vaccine List None recorded. Plan of Care Reminders Provider Appointments None recorded. Lab None recorded. Referral None recorded. Procedures None recorded. Surgeries None recorded. Imaging None recorded. Vitals 03/07/2021 08:20AM ED FOLLOW-UP Height Weight BMI Blood Pressure 61 in 188 lbs 8 oz 35.6 kg/m2 142/89 mm[Hg] 03/03/2021 12:40PM ESTABLISHED [id number] Height Weight BMI Blood Pressure 61 in 190 lbs 3 oz 35.9 kg/m2 145/90 mm[Hg] 02/28/2021 08:20AM HOSPITAL DISCHARGE Height Weight BMI Blood Pressure 61 in 194 lbs 36.7 kg/m2 (1) 160/93 mm[H g] (2) 148/90 mm[Hg]
--- OUTSIDE RECORDS SUMMARY | 2021-03-20 10:48 | CCD ---
Author Organization Unknown Address [address] [place] [address] Phone [phone] Care Team Providers Care Clinical Education Consultant Name Role Phone Isai Kohler Unavailable Unavailable Allergies Code Code System Name Reaction Severity Status Onset 159242 RxNorm Bactrim Ds Nausea Active 06/09/2017 1827 [...] tablet twice a day by oral route. Active Not available hydroxyzine HCl 25 mg tablet Take 1 tablet 3 times a day by oral route. Active Not available ibuprofen 800 mg tablet [...] Result Interpretation Description Value Range Status Address 02/17/2021 CMP, Serum or Plasma Glu 90 mg/dL 74-1 06 mg/dL [facility] ([facility]): 4 [facility] Low Bun 5 mg/dL 7-18 mg/dL [facility] ([facility]): 4 [facility] Cre 0.81 mg/dL 0.6-1.0 mg/dL [facility] ([facility]): 4 [facility] Na 141 mmol/L 136-145 mmol/L [facility] ([facility]): 4 [facility] K 3.8 mmol/L 3.5-5.1 mmol/L [facility] ([facility]): 4 [facility] Cl 104 mmol/L 98-107 mmol/L [facility] ([facility]): 4 [facility] Co2 26 mmol/L 21-32 mmol/L [facility] ([facility]): 4 [facility] Ca 9.1 mg/dL 8.5-10.1 mg/dL [facility] ([facility]): 4 [facility] Gap 11.0 mmol/L 5-12 mmol/L [facility] ([facility]): 4 [facility] Gfr 82 mL/min Final [facility]): 4 [facility] Ast 19 U/L 15-37 U/L Final [facility] ([facility]): 4 [facility] Alt 22 U/L 12-78 U/L Final [facility] ([facility]): 4 [facility] Alk 107 U/L 46-116 U/L [facility] ([facility]): 4 [facility] Tbili 0.6 mg/dL 0.2-1.0 mg/dL [facility] ([facility]): 4 [facility] Tp 7.1 g/dL 6.4-8.2 g/dL [facility] ([facility]): 4 [facility] Alb 3.7 gm/dL 3.4-5.0 gm/dL [facility] ([facility]): 4 [facility] 02/17/2021 CK (Creatine Kinase), Total, Serum C pk 62 U/L 26-192 U/L [facility]): 4 [facility] 02/17/2021 Magnesium, Serum or Plasma mg 1.9 mg/ dL 1.8-2.4 mg/dL [facility]): 4 [facility] 02/17/2021 Lipase, Serum or Plasma Lip 103 U/L 73 -393 U/L [facility]): 4 [facility] 02/17/2021 Troponin-high Sensitivity Trophs 4.2 NG /L 0-60.4 NG/L [facility]): 4 [facility] 02/17/2021 TSH, Serum or Plasma Tsh 1.916 uI U/mL 0.358-3.74 uIU/mL [facility]): 4 [facility] Past Encounters 03/03/2021 Tobacco User; Generalized Anxiety Disorder; Palpitations Isai Kohler MD: [address] [place] [phone], Ph. 02/28/2021 Elevated Blood-pressure Reading without Diagnosis of Hypertension; Generalized Anxiety Disorder; Tobacco User Isai Kohler MD: [address] [place] [phone], Ph. Social History Tobacco Smoking Status Heavy Tobacco Smoker (1 pack per a da y) Vaccine List None recorded. Plan of Care Reminders Provider Appointments None recorded. Lab None recorded. Referral None recorded. Procedures None recorded. Surgeries None recorded. Imaging None recorded. Vitals 03/03/2021 12:40PM ESTABLISHED [id number] Height Weight BMI Blood Pressure 61 in 190 lbs 3 oz 35.9 kg/m2 145/90 mm[Hg] 02/28/2021 08:20AM HOSPITAL DISCHARGE Height Weight BMI Blood Pressure 61 in 194 lbs 36.7 kg/m2 (1) 160/93 mm[H g] (2) 148/90 mm[Hg]
--- OUTSIDE RECORDS SUMMARY | 2021-03-20 10:48 | CCD ---
Author Organization Unknown Address [address] [place] [address] Phone [phone] Care Team Providers Care Client Engagement Specialist Name Role Phone Edita Isai Unavailable Unavailable Allergies Code Code System Name Reaction Severity Status Onset 628308 RxNorm Bactrim Ds Nausea Active 06/09/2017 1827 RxNorm Buspirone Deactivated Notes: BACTRIM DS (SULFAMETHOXAZOLE-TRIM ETHOPRIM) Medications Name Status Start Date Stop Date albuterol sulf 90 mcg/actuation breath a ctivated powder inhaler,sensor Inhale 2 puffs every 4 hours by inhalation route. Active Not available amlodipine 5 mg tablet Take 1 tablet every day by oral route. Active Not available buspirone 5 mg tablet Take 1 tablet twice a day by oral route. Active Not available nicotine (polacrilex) 4 mg gum Chew 1 piece of gum every 2 hours by oral route as needed. Active Not available paroxetine 10 mg tablet Take 1 tablet every day by oral route. Active Not available Problems Name Status Onset Date Source Abscess of Limb Active 06/09/2017 History Generalized Anxiety Disorder Active 07/01/2017 His tory Tobacco User Active 02/28/2021 Elevated Blood-pressure Reading without Diagnosis of Hyperte nsion Active 02/28/2021 Procedures Notes: 2 c -sections Results Lab Results Date Name Specimen Result Interpretation Description Value Range Status Address 02/17/2021 CMP, Serum or Plasma Glu 90 mg/dL 74-1 06 mg/dL [facility]): 4 [facility] Low Bun 5 mg/dL 7-18 mg/dL [facility]): 4 [facility] Cre 0.81 mg/dL 0.6-1.0 mg/dL [facility]): 4 [facility] Na 141 mmol/L 136-145 mmol/L [facility]): 4 [facility] K 3.8 mmol/L 3.5-5.1 mmol/L [facility] ([facility]): 4 [facility] Cl 104 mmol/L 98-107 mmol/L [facility] ([facility]): 4 [facility] Co2 26 mmol/L 21-32 mmol/L [facility] ([facility]): 4 [facility] Ca 9.1 mg/dL 8.5-10.1 mg/dL [facility] ([facility]): 4 [facility] Gap 11.0 mmol/L 5-12 mmol/L [facility] ([facility]): 4 [facility] Gfr 82 mL/min [facility]): 4 [facility] Ast 19 U/L 15-37 U/L Final [facility] ([facility]): 4 [facility] Alt 22 U/L 12-78 U/L Final [facility] ([facility]): 4 [facility] Alk 107 U/L 46-116 U/L [facility] ([facility]): 4 [facility] Tbili 0.6 mg/dL 0.2-1.0 mg/dL [facility] ([facility]): 4 [facility] Tp 7.1 g/dL 6.4-8.2 g/dL [facility] ([facility]): 4 [facility] Alb 3.7 gm/dL 3.4-5.0 gm/dL [facility] ([facility]): 4 [facility] 02/17/2021 CK (Creatine Kinase), Total, Serum C pk 62 U/L 26-192 U/L [facility] ([facility]): 4 [facility] 02/17/2021 Magnesium, Serum or Plasma mg 1.9 mg/ dL 1.8-2.4 mg/dL [facility] ([facility]): 4 [facility] 02/17/2021 Lipase, Serum or Plasma Lip 103 U/L 73 -393 U/L [facility] ([facility]): 4 [facility] 02/17/2021 Troponin-high Sensitivity Trophs 4.2 NG /L 0-60.4 NG/L [facility]): 4 [facility] 02/17/2021 TSH, Serum or Plasma Tsh 1.916 uI U/mL 0.358-3.74 uIU/mL [facility]): 4 [facility] Past Encounters 02/28/2021 Elevated Blood-pressure Reading without Diagnosis of Hypertension; Generalized Anxiety Disorder; Tobacco User Isai Kohler MD: [address] [place] [address], Ph. Social History Tobacco Smoking Status Heavy Tobacco Smoker (1 pack per a da y) Vaccine List None recorded. Plan of Care Reminders Provider Appointments None recorded. Lab None recorded. Referral None recorded. Procedures None recorded. Surgeries None recorded. Imaging None recorded. Vitals Height Weight BMI Blood Pressure 61 in 194 lbs 36.7 kg/m2 (1) 160/93 mm[H g] (2) 148/90 mm[Hg]
--- OUTSIDE RECORDS SUMMARY | 2021-03-20 10:48 | CCD | Continuity of Care Document ---
Author Author [facility] Address [address] [place] [address] Phone Care Team Providers Care Toys Inspector Name Role Phone ROSALINDA WINTER PCP Chief Complaint and Reason for Visit Reason for Visit CHEST TIGHTNESS/HIG H BLOOD PRESSURE Health Concerns Health Concerns may be documented in an alternate section. Allergies, Adverse Reactions, Alerts No allergy information available. Social History Assigned Sex Female Problems No problem information available. Medications No medication information available. Immunizations No Immunization Information Available Medical Equipment No Medical Equipment Information available Procedures No procedure information available. Relevant Diagnostic Tests and/or Laboratory Data Laboratory Results Test Date/Time Result Interpretation Reference Range Result Comment Performing Site White Blood Count February 17 4:45pm 7.0 4.0-10.0 [facility], 4 [facility] [address] Red Blood Count February 17, 2021 4:45p m 4.07 4.00-5.50 [facility], 4 [facility] [address] Hemoglobin February 17, 2021 4:45pm 13.0 12.0-16.0 [facility], 4 [facility] [address] Hematocrit February 17, 2021 4:45pm 38.6 36.0-48.8 [facility], 4 [facility] [address] Mean Corpuscular Volume February 172020 4:45pm 94.8 80-96 [facility], 4 [facility] [address] Mean Corpuscular Hemoglobin Septembe r 2020 4:45pm 31.9 27.0-31.0 [facility], 4 [facility] [address] Mean Corpuscular Hgb Concent Diff Se ptember 2020 4:45pm 33.7 32.0-36.0 [facility], 4 [facility] [address] Red Cell Distribution Width Septembe r 2020 4:45pm 13.3 10.0-14.5 [facility], 4 [facility] [address] Platelet Count February 17, 2021 4:45pm 267 172-450 [facility], 4 [facility] [address] Mean Platelet Volume February 17, 2021 4:45pm 9.6 9.0-13.0 [facility], 4 [facility] [address] Granulocytes % (Auto) January 4:45pm 58.1 50-80.0 [facility], 4 [facility] [address] Immature Granulocytes % February 172020 4:45pm 0.3 0.0-0.2 [facility], [address] [place] [address] Lymphocytes % February 17, 2021 4:45pm 31.1 25.0-50.0 [facility], [address] [place] [address] Monocytes % February 17, 2021 4:45pm 8.0 2.0-10.0 [facility], 4 [facility] [address] Eosinophils % February 17, 2021 4:45pm 2.1 0-5.0 [facility], 4 [facility] [address] Basophils % February 17, 2021 4:45pm 0.4 0.0-2.0 [facility], 4 [facility] [address] Granulocytes # February 17, 2021 4:45pm 4.1 2.0-8.00 [facility], 4 [facility] [address] Immature Granulocytes # February 172020 4:45pm 0.0 0.0-0.2 [facility], 4 [facility] [address] Lymphocytes # February 17, 2021 4:45pm 2.2 1.0-5.0 [facility], 4 [facility] [address] Monocytes # February 17, 2021 4:45pm 0.6 0.10-1.20 [facility], 4 [facility] [address] Eosinophils # February 17, 2021 4:45pm 0.2 0.0-0.5 [facility], 4 [facility] [address] Basophils # February 17, 2021 4:45pm 0.0 0.0-0.2 [facility], 4 [facility] [address] Prothrombin Time February 17 4:45pm 10.3 9.1-11.6 [facility], 4 [facility] [address] INR International Normalized Ratio S eptemb2020 4:45pm 0.99 0.87-1.06 [facility], 4 [facility] [address] Partial Thromboplastin Time - Jonna S eptember 2020 4:45pm 24.2 21.2-27.3 [facility], 4 [facility] [address] Urine Color February 17, 2021 4:45pm [facility], 4 [facility] [address] Urine Appearance February 17 4:45pm CLEAR [facility], 4 [facility] [address] Urine Glucose February 17, 2021 4:45pm NEGATIVE NEGATIVE [facility], 4 [facility] [address] Urine Bilirubin February 17, 2021 4:45p m NEGATIVE NEGATIVE [facility], 4 [facility] [address] Urine Ketones February 17, 2021 4:45pm NEGATIVE NEGATIVE [facility], 4 [facility] [address] Specific Blair February 17 4:45pm 1.015 1.005-1.030 [facility], 4 [facility] [address] Urine Blood February 17, 2021 4:45pm TRACE NEGATIVE [facility], 4 [facility] [address] Urine pH February 17, 2021 4:45pm 6.0 5.0-9.0 [facility], 4 [facility] [address] Urine Protein February 17, 2021 4:45pm NEGATIVE NEGATIVE [facility], 4 [facility] [address] Urine Urobilinogen February 17, 2 021 4:45pm NORMAL(0.2-1) 0-1 [facility], 4 [facility] [address] Urine Nitrite February 17, 2021 4:45pm NEGATIVE NEGATIVE [facility], 4 [facility] [address] Urine Leukocyte Esterase January 302020 4:45pm NEGATIVE NEGATIVE [facility] [address] Urine Microscopic RBC January 4:45pm 0-2 0-3 [facility], 4 [facility] [address] Urine Microscopic WBC January 4:45pm 0-2 0-5 [facility], 4 [facility] [address] Urine Epithelial Cells January 4:45pm 2+ 0 [facility], 4 [facility] [address] Urine Bacteria February 17, 2021 4:45pm 1+ NONE SEEN [facility], 4 [facility] [address] Glucose Level February 17, 2021 4:45pm 90 74-106 [facility], 4 [facility] [address] Blood Urea Nitrogen February 17, 2021 4:45pm 5 7-18 [facility], 4 [facility] [address] Creatinine February 17, 2021 4:45pm 0.81 0.6-1.0 [facility], 4 [facility] [address] Sodium Level February 17, 2021 4:45pm 141 136-145 [facility], 4 [facility] [address] Potassium Level February 17, 2021 4:45p m 3.8 3.5-5.1 [facility], 4 [facility] [address] Chloride Level February 17, 2021 4:45pm 104 98-107 [facility], 4 [facility] [address] Carbon Dioxide Level February 17, 2021 4:45pm 26 21-32 [facility], 4 [facility] [address] Calcium Level February 17, 2021 4:45pm 9.1 8.5-10.1 [facility], 4 [facility] [address] Anion Gap February 17, 2021 4:45pm 11.0 5-12 [facility], 4 [facility] [address] Estimated GFR (MDRD) February 17, 2021 4:45pm 82 GFR IS CALCULATED IN mL/min/1.73m2 NORMAL FUNCTION: >90MILDLY DECREASED: 60-89MILDY TO MODERATELY DECREASED: 45-59 MODERATELY TO SEVERELY DECREASED: 30-44SEVERELY DECREASED: 15-29RENAL FAILURE: <15 [facility], 4 [facility] [address] Aspartate Amino Transf (AST/SGOT) Se ptember 2020 4:45pm 19 15-37 [facility], 4 [facility] [address] Alanine Aminotransferase (ALT/SGPT) February 17, 2021 4:45pm 22 12-78 [facility], 4 [facility] [address] Alkaline Phosphatase February 17, 2021 4:45pm 107 46-116 [facility], 4 [facility] [address] Total Bilirubin February 17, 2021 4:45p m 0.6 0.2-1.0 [facility], [address] [place] [address] Total Protein February 17, 2021 4:45pm 7.1 6.4-8.2 [facility], 4 [facility] [address] Albumin February 17, 2021 4:45pm 3.7 3.4-5.0 [facility], 4 [facility] [address]87 Lipase February 17, 2021 4:45pm 103 73-393 [facility], 4 [facility] [address] Creatine Kinase February 17, 2021 4:45p m 62 26-192 [facility], 4 [facility] [address] Troponin I High Sensitivity Septembe r 2020 4:45pm 4.2 0-60.4 [facility], 4 [facility] [address] Thyroid Stimulating Hormone (TSH) Se pt2020 4:45pm 1.916 0.358-3.74 [facility], 4 [facility] [address] Magnesium Level February 17, 2021 4:45p m 1.9 1.8-2.4 [facility], [address] [place] [address] Vital Signs No vital signs result information available. Insurance Providers Guarantor DANE HENNESSY Address [address] [place] [address] Contact Info. Home Phone: Payer Policy Id Coverage Id Subscriber's Name Subscriber Id Effective Date Expiration Date [employer] MEDICAID [id number] DANE HENNESSY Encounters Encounter Location(s) Ar rival/Admit Date Discharge/Depart Date Provider(s) Departed Emergency [facility] February 17, 2021 4:13pm February 17, 2021 6:42pm AMNA RAY Functional Status No Functional Status information available Mental Status No Mental Status Information Available Assessments No Assessments Information Available Goals Goals may be documented in an alternate section.
--- OUTSIDE RECORDS SUMMARY | 2021-03-20 10:48 | CCD ---
Author Author [facility] Organization [facility] Address Unknown Phone Unavailable Care Team Providers Care Farmworker Vegetable Name Role Phone BeauFranciscaMckenna Unavailable PROBLEMS Type Condition ICD9-CM Code [id number] Code Onset Dates Condition S tatus W/U Status Risk SNOMED Code Notes Problem Supervision of other normal Z34.80 Ac tive confirm 932975328 Problem Hypertension I10 Active confirmed 4838187 3 Problem Hidradenitis suppurativa 705.83 Active confirmed 71537934 Problem Obesity 278.00 Active confirmed 365497483 Problem 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.1 Active confirmed 829495655 ALLERGIES Allergen (clinical drug ingredient) Drug/Non Drug Allergy do cumented on EMR Reaction Allergy Type Onset Date Status sulfamethoxazole / trimethoprim Bactrim DS([facility] Code:24381-40 46-01) Nausea/Vomiting Drug Allergy Active ENCOUNTERS from 1989 to 2021-02-21 Encounter Location Date Provider Diagnosis [facility] [address] [place] [address] [place] [address] Jan, Mckenna Yanez IMMUNIZATIONS No Information SOCIAL HISTORY [...] 4 hrs for 30 day(s) Dec, Active busPIRone HCl 5 MG 1 tablet [...] Information RESULTS No Results REASON FOR VISIT RX REFILL MEDICAL (GENERAL) HISTORY Type Description Date Medical [...] 30 days Jan, Next Appt Details Provider Name:Mckenna Yanez, 2021-02-26 0 8:45:00 AM, [address] [place] [address], [address] [place] [address] Provider Name:Gregory Hansen, 10:40:00 AM, [address] [place] [address], [address] [place] [address] Provider Name:Cyril Trotter, 2021-05-02 07:30:00 AM, [address] [place] [address], [place] [address], Provider Name:Isis Sanchez, 2021-05-02 0 7:30:00 AM, [address] [place] [address], [place] [address], Insurance Providers Payer Name Payer Address Payer Phone Insured Name Patient Relati onship to Insured Coverage Start Date Coverage End Date [facility] [address] [facility] [phone] DANE HENNESSY self
--- OUTSIDE RECORDS SUMMARY | 2021-03-20 10:48 | CCD ---
Author Author [facility] Organization [facility] Address Unknown Phone Unavailable Care Team Providers Care Burner Operator Name Role Phone Azeemvasyl Vivien Unavailable PROBLEMS Type Condition ICD9-CM Code [id number] Code Onset Dates Condition S tatus W/U Status Risk SNOMED Code Notes Problem Blood pressure check Z01.30 Active confirmed 541739292 Problem Unspecified maternal hypertension, complicating the pu erperium O16.5 Active confirmed Problem Hypertension I10 Active confirmed 4136298 3 Problem Hidradenitis suppurativa 705.83 Active confirmed 57412222 Problem Obesity 278.00 Active confirmed 564779564 Problem 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.1 Active confirmed 781598745 Problem Supervision of other normal Z34.80 Ac tive confirm 553186804 ALLERGIES Allergen (clinical drug ingredient) Drug/Non Drug Allergy do cumented on EMR Reaction Allergy Type Onset Date Status sulfamethoxazole / trimethoprim Bactrim DS([facility] Code:17726-58 46-01) Nausea/Vomiting Drug Allergy Active ENCOUNTERS from 1989 to 2021-03-05 Encounter Location Date Provider Diagnosis [facility] [address] [facility] [phone] [place] [address] 15 Jan, 2021 Vivien Pino Other mental disorde rs complicating the puerperium O99.345 ; 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 ; Unspecified maternal hypertension, complicating the puerperium O16.5 and Hypertension I10 IMMUNIZATIONS No Information SOCIAL HISTORY Sex Assigned At : Social History Observation Description Sex Assigned At Unknown Domestic Violence: Question Answer Notes Status: No history of abuse REASON FOR REFERRAL No Information VITAL SIGNS Weight 206 lbs Jan, Weight-kg 93.44 kg Jan, Height 61.75 in Jan, BMI 37.98 kg/m2 Jan, Blood pressure systolic 168 mm Hg Jan, Blood pressure diastolic 92 mm Hg Jan, MEDICATIONS Medication SIG (Take, Route, Frequency, Duration) [...] hrs Dec, Not-Taking PROCEDURES No Information RESULTS Component Value Reference Range CREATININE,RANDOM URINE Reviewed date:02/12/2021 14:29:18 Interpretation: Performing Lab:Counts include 234 beds at the [facility] [address] [place] [address] , ,[place] [address] CREATININE,RANDOM URINE 25.9 TOTAL PROTEIN,RANDOM URINE Reviewed date:02/12/2021 14:29:02 Interpretation: Performing Lab:Counts include 234 beds at the [facility] [address] [facility] [address] , ,[place] [address] TOTAL PROTEIN,RANDOM URINE < 5.0 0.0-12.0 CBC - Complete Blood Count Reviewed date:02/13/2021 11:53:24 Interpretation: Performing Lab:Counts include 234 beds at the [facility] [address] [place] [address] , ,[place] [address] WHITE BLOOD COUNT 7.8 4.0-10.0 RED BLOOD COUNT 3.79 4.00-5.40 HEMOGLOBIN 12.4 12.0-15.5 HEMATOCRIT 37.3 36.0-47.0 MEAN CORPUSCULAR VOLUME 98.4 80.0-96.0 MEAN CORPUSCULAR HEMOGLOBIN 32.7 27.0-33.0 MEAN CORPUSCULAR HGB CONC 33.2 32.0-36.5 RED CELL DISTRIBUTION WIDTH 14.2 11.5-14.5 PLATELET COUNT, AUTOMATED 279 150-450 Comprehensive Metabolic Profile (CMP) Reviewed date:02/13/2021 11:23:42 Interpretation: Performing Lab:[facility] [address] [facility] [id number] , ,[place] [address] GLUCOSE, FASTING 90 70-100 BLOOD UREA NITROGEN 4 7-18 CREATININE FOR GFR 0.71 0.55-1.30 GLOMERULAR FILTRATION RATE > 60.0 >60 SODIUM LEVEL 143 136-145 POTASSIUM SERUM 4.1 3.5-5.1 CHLORIDE LEVEL 109 98-107 CARBON DIOXIDE LEVEL 24 21-32 CALCIUM LEVEL 8.7 8.5-10.1 AST/SGOT 15 7-37 ALT/SGPT 21 12-78 ALKALINE PHOSPHATASE 91 45-117 BILIRUBIN,TOTAL 0.9 0.2-1.0 TOTAL PROTEIN 6.0 6.4-8.2 ALBUMIN 3.2 3.2-5.2 ALBUMIN/GLOBULIN RATIO 1.1 1.2-2.2 REASON FOR VISIT 4 WK PN MEDICAL (GENERAL) HISTORY Type Description Date Medical History asthma Medical History MRSA Medical History anxiety Surgical History C section Hospitalization History childbirth Goals Section No Information Health Concerns No Information MEDICAL EQUIPMENT No Information MENTAL STATUS No Information FUNCTIONAL STATUS No Information ASSESSMENTS Encounter Date Diagnosis Assessment Notes Treatment Notes Treatm ent Clinical Notes Jan, Other mental disorders compl icating the puerperium (ICD-10 - O99.345) Jan, Other specified anxiety disorders (ICD-10 - F41. 8) Jan, Unspecified maternal hyperte nsion, complicating the puerperium (ICD-10 - O16.5) Jan, Hypertension (ICD-10 - I10) PLAN OF TREATMENT Medication Medication Name Sig Start Date Stop Date busPIRone HCl 5 MG 1 tablet Orally Three times a day for 30 days Jan, Next Appt Details Provider Name:Gregory Hansen, 10:40:00 AM, [address] [place] [address], , [place], [address], Provider Name:Cyril Trotter, 2021-05-02 07:30:00 AM, [address] [place] [address], , [place], [address], Provider Name:Isis Sanchez, 2021-05-02 0 7:30:00 AM, [address] [place] [address], , [place], [address], Insurance Providers Payer Name Payer Address Payer Phone Insured Name Patient Relati onship to Insured Coverage Start Date Coverage End Date [facility] [address] [facility] [phone] DANE HENNESSY self
--- OUTSIDE RECORDS SUMMARY | 2021-03-20 10:49 | CCD ---
Author Author [facility] Organization [facility] Address Unknown Phone Unavailable Care Team Providers Care Lead Medical Technologist Name Role Phone Mckenna Yanez Unavailable PROBLEMS Type Condition ICD9-CM Code [id number] Code Onset Dates Condition S tatus W/U Status Risk SNOMED Code Notes Problem Supervision of other normal Z34.80 Ac tive confirm 121499195 Problem Hypertension I10 Active confirmed 9329829 3 Problem Hidradenitis suppurativa 705.83 Active confirmed 42174497 Problem Obesity 278.00 Active confirmed 990667819 Problem 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.1 Active confirmed 935775507 ALLERGIES Allergen (clinical drug ingredient) Drug/Non Drug Allergy do cumented on EMR Reaction Allergy Type Onset Date Status sulfamethoxazole / trimethoprim Bactrim DS([facility] Code:87016-76 46-01) Nausea/Vomiting Drug Allergy Active ENCOUNTERS from 1989 to 2021-02-19 Encounter Location Date Provider Diagnosis [facility] [address] [place] [address] [place] [address] Jan, Mckenna Yanez Blood pressure check Z01.30 IMMUNIZATIONS No Information SOCIAL HISTORY Sex Assigned At : Social History Observation Description Sex Assigned At Unknown Domestic Violence: Question Answer Notes Status: No history of abuse REASON FOR REFERRAL No Information VITAL SIGNS Weight 195.2 lbs Jan, Weight-kg 88.54 kg Jan, Height 61.75 in Jan, BMI 35.99 kg/m2 Jan, Blood pressure systolic 132 mm Hg Jan, Blood pressure diastolic 84 mm Hg Jan, MEDICATIONS Medication SIG (Take, Route, Frequency, Duration) Notes Start Da te End Date Status Albuterol Sulfate HFA 108 (90 Base) MCG/ACT 2 puffs as needed Inhalation every 4 hrs for 30 day(s) Dec, Active Tylenol Extra Strength 500 MG 2 tablets as needed Orally every 6 hrs Active Ibuprofen 800 MG 1 tablet with food or milk as needed Ora lly Three times a day Active Labetalol HCl 200 MG 1 tablet Orally Twice a day for 30 day(s) Jan, Not-Taking busPIRone HCl 5 MG 1 tablet Orally Three times a day for 30 days Jan, Active 27-1 MG 1 tablet Orally Once a day Not-Taking Tylenol 325 MG 2 tabs as needed Orally every 6 hrs Not-Taking Robitussin DM 100-10 MG/5ML 10 ml as needed Orally every 4 hrs Dec, Not-Taking PROCEDURES from 1989 to 2021-02-19 Procedure Date Ordered Result Body Site Nurse Visit Blood Pressure Check 2021-02-19 N/A RESULTS No Results REASON FOR VISIT blood pressure check MEDICAL (GENERAL) HISTORY Type Description Date Medical History asthma Medical History MRSA Medical History anxiety Surgical History C section Hospitalization History childbirth Goals Section No Information Health Concerns No Information MEDICAL EQUIPMENT No Information MENTAL STATUS No Information FUNCTIONAL STATUS No Information ASSESSMENTS Encounter Date Diagnosis Assessment Notes Treatment Notes Treatm ent Clinical Notes Jan, Blood pressure check (ICD-10 - Z01.30) PLAN OF TREATMENT Medication Medication Name Sig Start Date Stop Date busPIRone HCl 5 MG 1 tablet Orally Three times a day for 30 days Jan, Next Appt Details Provider Name:Mckenna Yanez, 2021-02-26 0 8:45:00 AM, [address] [place], [place] [id number], [place], [address], Provider Name:Gregory Hansen, 10:40:00 AM, [address] [place], [place] [phone], [place], [address], Provider Name:Cyril Trotter, 2021-05-02 07:30:00 AM, [address] [place], [place] [address], [place], [address], Provider Name:Isis Sanchez, 2021-05-02 0 7:30:00 AM, [address] [facility], , [place], [address], Insurance Providers Payer Name Payer Address Payer Phone Insured Name Patient Relati onship to Insured Coverage Start Date Coverage End Date [facility] PLAN [facility] [address] [facility] [phone] DANE HENNESSY self
--- OUTSIDE RECORDS SUMMARY | 2021-03-20 10:49 | CCD ---
Author Author [facility] Organization [facility] Address Unknown Phone Unavailable Care Team Providers Care Gas Station Service Attendant Name Role Phone Vivien Pino Unavailable PROBLEMS Type Condition ICD9-CM Code [id number] Code Onset Dates Condition S tatus W/U Status Risk SNOMED Code Notes Problem Supervision of other normal Z34.80 Ac tive confirm 540690078 Problem Hypertension I10 Active confirmed 7109414 3 Problem Hidradenitis suppurativa 705.83 Active confirmed 05171203 Problem Obesity 278.00 Active confirmed 358216417 Problem 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.1 Active confirmed 124937107 ALLERGIES Allergen (clinical drug ingredient) Drug/Non Drug Allergy do cumented on EMR Reaction Allergy Type Onset Date Status sulfamethoxazole / trimethoprim Bactrim DS([facility] Code:95927-52 46-01) Nausea/Vomiting Drug Allergy Active ENCOUNTERS from 1989 to 2021-02-13 Encounter Location Date Provider Diagnosis [facility] [address] [place] [address] [place] [address] Jan, Vivien Pino IMMUNIZATIONS No Information SOCIAL HISTORY Sex Assigned At : Social History Observation Description Sex Assigned At Unknown Domestic Violence: Question Answer Notes Status: No history of abuse REASON FOR REFERRAL No Information VITAL SIGNS No information MEDICATIONS Medication SIG (Take, Route, Frequency, Duration) Notes Start Da te End Date Status Robitussin DM 100-10 MG/5ML 10 ml as needed Orally every 4 hrs Dec, Not-Taking Labetalol HCl 200 MG 1 tablet Orally Twice a day for 30 day(s) Jan, Active Albuterol Sulfate HFA 108 (90 Base) MCG/ACT 2 puffs as needed Inhalation every 4 hrs for 30 day(s) Dec, Active 27-1 MG 1 tablet Orally Once a day Active Tylenol 325 MG 2 tabs as needed Orally every 6 hrs Active PROCEDURES No Information RESULTS No Results REASON FOR VISIT No Information MEDICAL (GENERAL) HISTORY Type Description Date Medical History asthma Medical History MRSA Medical History anxiety Surgical History C section Hospitalization History childbirth Goals Section No Information Health Concerns No Information MEDICAL EQUIPMENT No Information MENTAL STATUS No Information FUNCTIONAL STATUS No Information ASSESSMENTS No Information PLAN OF TREATMENT Medication Medication Name Sig Start Date Stop Date Labetalol HCl 200 MG 1 tablet Orally Twice a day for 30 day(s) 1 Jan, Next Appt Details Provider Name:Mckenna Yanez, 2021-02-19 0 9:00:00 AM, [address] [place] [address], [place], [place], [address] [place] [address], [address] [place] [address] Provider Name:Gregory Hansen, 10:40:00 AM, [address] [place] [address], [place], [address] [place] [address], [address] [place] [address] Provider Name:Cyril Trotter, 2021-05-02 07:30:00 AM, [address] [place] [address], [place], [address] [place] [address], Provider Name:Isis Sanchez, 2021-05-02 0 7:30:00 AM, [address] [place] [address], [place], [address] [place] [address], [address] [place] [address] Insurance Providers Payer Name Payer Address Payer Phone Insured Name Patient Relati onship to Insured Coverage Start Date Coverage End Date [facility] [employer] [address] [facility] [phone] DANE HENNESSY self
--- OUTSIDE RECORDS SUMMARY | 2021-03-20 10:49 | CCD ---
Author Author [facility] Organization [facility] Address Unknown Phone Unavailable Care Team Providers Care C Winforms Developer Name Role Phone Beau Mckenna Unavailable PROBLEMS Type Condition ICD9-CM Code DAH15-UP Code Onset Dates Condition S tatus W/U Status Risk SNOMED Code Notes Problem Supervision of other normal Z34.80 Ac tive confirm 496068074 Problem Hypertension I10 Active confirmed 9740196 3 Problem Hidradenitis suppurativa 705.83 Active confirmed 51400669 Problem Obesity 278.00 Active confirmed 965443789 Problem 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.1 Active confirmed 550356927 ALLERGIES Allergen (clinical drug ingredient) Drug/Non Drug Allergy do cumented on EMR Reaction Allergy Type Onset Date Status sulfamethoxazole / trimethoprim Bactrim DS([facility] Code:48598-65 46-01) Nausea/Vomiting Drug Allergy Active ENCOUNTERS from 1989 to 2021-02-19 Encounter Location Date Provider Diagnosis [facility] [address] [place] [address] [place] [address] Jan, Mckenna Yanez IMMUNIZATIONS No Information SOCIAL [...] Information RESULTS No Results REASON FOR VISIT anxiety/panic attacks MEDICAL (GENERAL) HISTORY Type Description Date Medical [...] Provider Name:Mckenna Yanez, 2021-02-26 0 8:45:00 AM, [address] [place] [address], [place] [address], [address] [place] [address] Provider Name:Gregory Hansen, 10:40:00 AM, [address] [place] [address], [place] [address], [address] [place] [address] Provider Name:Cyril Trotter, 2021-05-02 07:30:00 AM, [address] [place] [address], [place] [address], Provider Name:Isis Sanchez, 2021-05-02 0 7:30:00 AM, [address] [place] [address], [place] [address], Insurance Providers Payer Name Payer Address Payer Phone Insured Name Patient Relati onship to Insured Coverage Start Date Coverage End Date [facility] [address] [facility] [phone] DANE HENNESSY self
--- OUTSIDE RECORDS SUMMARY | 2021-03-20 10:49 | CCD ---
Author Author [facility] Organization [facility] Address Unknown Phone Unavailable Care Team Providers Care Electric Motor Repairman Name Role Phone Bea Long Unavailable PROBLEMS Type Condition ICD9-CM Code LUF38-KM Code Onset Dates Condition S tatus W/U Status Risk SNOMED Code Notes Problem 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.1 Active confirmed 946032021 Problem Supervision of other normal Z34.80 Ac tive confirm 372526017 Problem Hidradenitis suppurativa 705.83 Active confirmed 77532754 Problem Obesity 278.00 Active confirmed 166502977 ALLERGIES Allergen (clinical drug ingredient) Drug/Non Drug Allergy do cumented on EMR Reaction Allergy Type Onset Date Status sulfamethoxazole / trimethoprim Bactrim DS([facility] Code:06115-59 46-01) Nausea/Vomiting Drug Allergy Active ENCOUNTERS from 1989 to 2021-01-14 Encounter Location Date Provider Diagnosis [facility] [address] [place] [address] [place] [address] Dec, Bea Long 23 weeks gestation o f Z3A.23 ; Maternal care due to low transverse uterine scar from previous delivery O34.211 and History of placental abruption Z87.59 IMMUNIZATIONS No Information SOCIAL HISTORY Sex Assigned At : Social History Observation Description Sex Assigned At Unknown Domestic Violence: Question Answer Notes Status: No history of abuse REASON FOR REFERRAL No Information VITAL SIGNS Weight 206.7 lbs Dec, Height 61.75 in Dec, BMI 38.11 kg/m2 Dec, Blood pressure systolic 120 mm Hg Dec, Blood pressure diastolic 78 mm Hg Dec, MEDICATIONS Medication SIG (Take, Route, Frequency, Duration) Notes Start Da te End Date Status 27-1 MG 1 tablet Orally Once a day Active Albuterol Sulfate HFA 108 (90 Base) MCG/ACT 2 puffs as needed Inhalation every 4 hrs for 30 day(s) Dec, Active Robitussin DM 100-10 MG/5ML 10 ml as needed Orally every 4 hrs Dec, Not-Taking Tylenol 325 MG 2 tabs as needed Orally every 6 hrs Active PROCEDURES No Information RESULTS No Results REASON FOR VISIT 4 wk pn MEDICAL (GENERAL) HISTORY Type Description Date Medical History asthma Medical History MRSA Medical History anxiety Surgical History C section Hospitalization History childbirth Goals Section No Information Health Concerns No Information MEDICAL EQUIPMENT No Information MENTAL STATUS No Information FUNCTIONAL STATUS No Information ASSESSMENTS Encounter Date Diagnosis Assessment Notes Treatment Notes Treatm ent Clinical Notes Dec, 23 weeks gestation of (ICD-10 - Z3A.23 ) Dec, Maternal care due to low tra nsverse uterine scar from previous delivery (ICD-10 - O34.211) Dec, History of placental abruption (ICD-10 - Z87.59) PLAN OF TREATMENT Treatment Notes Test Name Order Date [facility] OBS FOLLOW UP OR REPEAT 2021-01-13 CBC - Complete Blood Count 2021-01-13 Type and Screen (D Rh Antibody Screen) 2021-01-13 Glucose Challenge Test 1 Hour 2021-01-13 RHOGAM 2021-01-13 Next Appt Details 4 Weeks Reason:PN Provider Name:Vivien Pino, 2021-01-29 5 09:30:00 AM, [address] [place] [phone], [place], [address], Provider Name:Cyril Trotter, 2021-05-02 07:30:00 AM, [address] [place] [address], [place], [address], Provider Name:Isis Sanchez, 2021-05-02 0 7:30:00 AM, [address] [place], [place] [phone], [place], [address], Follow Up:4 WeeksPN Insurance Providers Payer Name Payer Address Payer Phone Insured Name Patient Relati onship to Insured Coverage Start Date Coverage End Date [facility] COMM[facility]AN [facility] [address] [facility] [phone] [phone] DANE HENNESSY self
--- OUTSIDE RECORDS SUMMARY | 2021-03-20 10:51 | CCD ---
Author Author [facility] Organization [facility] Address Unknown Phone Unavailable Care Team Providers Care Quality Manager Name Role Phone Quincy Kohler MD Unavailable Unavailable Quincy Kohler MD Unavailable Unavailable Quincy Kohler MD Unavailable Unavailable Quincy Kohler MD Unavailable Unavailable Quincy Kohler MD Unavailable Unavailable Quincy Kohler MD Unavailable Unavailable Quincy Kohler MD Unavailable Unavailable Quincy Kohler MD Unavailable Unavailable Quincy Kohler MD Unavailable Unavailable Quincy Kohler MD Unavailable Unavailable Quincy Kohler MD Unavailable Unavailable Quincy Kohler MD Unavailable Unavailable Quincy Kohler MD Unavailable Unavailable Quincy Kohler MD Unavailable Unavailable Quincy Kohler MD Unavailable Unavailable Quincy Kohler MD Unavailable Unavailable Quincy Kohler MD Unavailable Unavailable Quincy Kohler MD Unavailable Unavailable Quincy Kohler MD Unavailable Unavailable Quincy Kohler MD Unavailable Unavailable Quincy Kohler MD Unavailable Unavailable Quincy Kohler MD Unavailable Unavailable Quincy Kohler MD Unavailable Unavailable Quincy Kohler MD Unavailable Unavailable Quincy Kohler MD Unavailable Unavailable Quincy Kohler MD Unavailable Unavailable Quincy Kohler MD Unavailable Unavailable Quincy Kohler MD Unavailable Unavailable Quincy Kohler MD Unavailable Unavailable Quincy Kohler MD Unavailable Unavailable Quincy Kohler MD Unavailable Unavailable Quincy Kohler MD Unavailable Unavailable Quincy Kohler MD Unavailable Unavailable Quincy Kohler MD Unavailable Unavailable Quincy Kohler MD Unavailable Unavailable Quincy Kohler MD Unavailable Unavailable Kohler, Quincy Alex MD Unavailable Unavailable Kohler, Quincy Alex MD Unavailable Unavailable Kohler, Quincy Alex MD Unavailable Unavailable Kohler, Quincy Alex MD Unavailable Unavailable Kohler, Quincy Alex MD Unavailable Unavailable Kohler, Quincy Alex MD Unavailable Unavailable Kohler, Quincy Alex MD Unavailable Unavailable Kohler, Quincy Alex MD Unavailable Unavailable Kohler, Quincy Alex MD Unavailable Unavailable Kohler, Quincy Alex MD Unavailable Unavailable Kohler, Quincy Alex MD Unavailable Unavailable Kohler, Quincy Alex MD Unavailable Unavailable Kohler, Quincy Alex MD Unavailable Unavailable Kohler, Quincy Alex MD Unavailable Unavailable Kohler, Quincy Alex MD Unavailable Unavailable Kohler, Quincy Alex MD Unavailable Unavailable Kohler, Quincy Alex MD Unavailable Unavailable Kohler, Quincy Alex MD Unavailable Unavailable Kohler, Quincy Alex MD Unavailable Unavailable Kohler, Quincy Alex MD Unavailable Unavailable Kohler, Quincy Alex MD Unavailable Unavailable Kohler, Quincy Alex MD Unavailable Unavailable Kohler, Quincy Alex MD Unavailable Unavailable Kohler, Quincy Alex MD Unavailable Unavailable Kohler, Quincy Alex MD Unavailable Unavailable Kohler, Quincy Alex MD Unavailable Unavailable Kohler, Quincy Alex MD Unavailable Unavailable Kohler, Quincy Alex MD Unavailable Unavailable Kohler, Quincy Alex MD Unavailable Unavailable Kohler, Quincy Alex MD Unavailable Unavailable Kohler, Quincy Alex MD Unavailable Unavailable Kohler, Quincy Alex MD Unavailable Unavailable Kohler, Quincy Alex MD Unavailable Unavailable Kohler, Quincy Alex MD Unavailable Unavailable Kohler, Quincy Alex MD Unavailable Unavailable Kohler, Quincy Alex MD Unavailable Unavailable Kohler, Quincy Alex MD Unavailable Unavailable Kohler, Quincy Alex MD Unavailable Unavailable Kohler, Quincy Alex MD Unavailable Unavailable Kohler, Quincy Alex MD Unavailable Unavailable Kohler, Quincy Alex MD Unavailable Unavailable Kohler, Quincy Alex MD Unavailable Unavailable Kohler, Quincy Alex MD Unavailable Unavailable Edita, Quincy Alex MD Unavailable Unavailable Quincy Kohler MD Unavailable Unavailable Edita, Quincy Alex MD Unavailable Unavailable Kohler, Quincy Alex MD Unavailable Unavailable Kohler, Quincy Alex MD Unavailable Unavailable Kohler, Quincy Alex MD Unavailable Unavailable Kohler, Quincy Alex MD Unavailable Unavailable Kohler, Quincy Alex MD Unavailable Unavailable Kohler, Quincy Alex MD Unavailable Unavailable KohlerQuincy MD Unavailable Unavailable Quincy Kohler MD Unavailable Unavailable Quincy Kohler MD Unavailable Unavailable Kohler, Quincy Alex MD Unavailable Unavailable Kohler, Quincy Alex MD Unavailable Unavailable LETTIERE, A MARLIN PA Unavailable Unavailable LETTIERE, A MARLIN PA Unavailable Unavailable LETTIERE, A MARLIN PA Unavailable Unavailable LETTIERE, A MARLIN PA Unavailable Unavailable LETTIERE, A MARLIN PA Unavailable Unavailable LETTIERE, A MARLIN PA Unavailable Unavailable LETTIERE, A MARLIN PA Unavailable Unavailable LETTIERE, A MARLIN PA Unavailable Unavailable LETTIERE, A MARLIN PA Unavailable Unavailable LETTIERE, A MARLIN PA Unavailable Unavailable LETTIERE, A MARLIN PA Unavailable Unavailable LETTIERE, A MARLIN PA Unavailable Unavailable LETTIERE, A MARLIN PA Unavailable Unavailable LETTIERE, A MARLIN PA Unavailable Unavailable LETTIERE, A MARLIN PA Unavailable Unavailable LETTIERE, A MARLIN PA Unavailable Unavailable LETTIERE, A MARLIN PA Unavailable Unavailable LETTIERE, A MARLIN PA Unavailable Unavailable LETTIERE, A MARLIN PA Unavailable Unavailable LETTIERE, A MARLIN PA Unavailable Unavailable LETTIERE, A MARLIN PA Unavailable Unavailable LETTIERE, A MARLIN PA Unavailable Unavailable LETTIERE, A MARLIN PA Unavailable Unavailable LETTIERE, A MARLIN PA Unavailable Unavailable LETTIERE, A MARLIN PA Unavailable Unavailable LETTIERE, A MARLIN PA Unavailable Unavailable LETTIERE, A MARLIN PA Unavailable Unavailable LETTIERE, A MARLIN PA Unavailable Unavailable LETTIERE, A MARLIN PA Unavailable Unavailable LETTIERE, A MARLIN PA Unavailable Unavailable LETTIERE, A MARLIN PA Unavailable Unavailable Clyde-Cherry, Sandra CNM Unavailable Unavailab le Dalia-Cherry, Sandra CNM Unavailable Unavailab le Dalia-Cherry, Sandra CNM Unavailable Unavailab le Clyde-Cherry, Sandra CNM Unavailable Unavailab le Dalia-Cherry, Sandra CNM Unavailable Unavailab le Clyde-Cherry, Sandra CNM Unavailable Unavailab le FLOR, SHANNA AMNA PA Unavailable Unavailable FLOR, SHANNA AMNA PA Unavailable Unavailable FLOR, SHANNA AMNA PA Unavailable Unavailable FLOR, SHANNA AMNA PA Unavailable Unavailable FLOR, SHANNA AMNA PA Unavailable Unavailable FLOR, SHANNA AMNA PA Unavailable Unavailable FLOR, SHANNA AMNA PA Unavailable Unavailable FLOR, SHANNA AMNA PA Unavailable Unavailable FLOR, SHANNA AMNA PA Unavailable Unavailable FLOR, SHANNA AMNA PA Unavailable Unavailable FLOR, SHANNA AMNA PA Unavailable Unavailable FLOR, SHANNA AMNA PA Unavailable Unavailable FLOR, SHANNA AMNA PA Unavailable Unavailable FLOR, SHANNA AMNA PA Unavailable Unavailable FLOR, SHANNA AMNA PA Unavailable Unavailable FLOR, SHANNA AMNA PA Unavailable Unavailable FLOR, SHANNA AMNA PA Unavailable Unavailable FLOR, SHANNA AMNA PA Unavailable Unavailable FLOR, SHANNA AMNA PA Unavailable Unavailable FLOR, SHANNA AMNA PA Unavailable Unavailable FLOR, SHANNA AMNA PA Unavailable Unavailable FLOR, SHANNA AMNA PA Unavailable Unavailable Re-disclosure Warning The records that you are about to access may contain information from federally-assisted alcohol or drug abuse programs. If such information is present, then the following federally mandated warning applies: This information has been disclosed to you from records protected by federal confidentiality rules (42 CFR part 2). The federal rules prohibit you from making any further disclosure of this information unless further disclosure is expressly permitted by the written consent of the person to whom it pertains or as otherwise permitted by 42 CFR part 2. A general authorization for the release of medical or other information is NOT sufficient for this purpose. The Federal rules restrict any use of the information to criminally investigate or prosecute any alcohol or drug abuse patient.The records that you are about to access may contain highly sensitive health information, the redisclosure of which is protected by Article 27-F of the [facility] Public Health law. If you continue you may have access to information: Regarding HIV / AIDS; Provided by facilities licensed or operated by the [facility] Office of Mental Health; or Provided by the [facility] Office for People With Developmental Disabilities. If such information is present, then the following [facility] mandated warning applies: This information has been disclosed to you from confidential records which are protected by state law. State law prohibits you from making any further disclosure of this information without the specific written consent of the person to whom it pertains, or as otherwise permitted by law. Any unauthorized further disclosure in violation of state law may result in a fine or snf sentence or both. A general authorization for the release of medical or other information is NOT sufficient authorization for further disc losure. Allergies and Adverse Reactions Type Description Substance Reaction Status Data Source(s ) Drug Allergy NKDA NKDA MEDENT ([facility]) Allergy to substance Allergy to substance Buspirone ABHINAV ([facility]) Allergy to substance Allergy to substance Buspirone ABHINAV ([facility]) Allergy to substance Allergy to substance Buspirone SAGAMORE ([facility]) Family History Family Member Name Family Member Gender Family Member Status Date o f Status Description Data Source(s) Unknown Male Diagnosis 10/27/2018 12:00:00 AM EDT NextGen ([facility]) Unknown Male Diagnosis 07/01/2015 12:00:00 AM EST NextGen ([facility]) Unknown Male Diagnosis 07/01/2015 12:00:00 AM EST NextGen ([facility]) Unknown Male Diagnosis 08/08/2014 12:00:00 AM EDT NextGen ([facility]) Unknown Male Diagnosis 08/08/2014 12:00:00 AM EDT NextGen ([facility]) Unknown Male Diagnosis 08/08/2014 12:00:00 AM EDT NextGen ([facility]) Unknown Unknown Problem MEDENT ([facility]) Unknown Unknown Problem MEDENT ([facility]) Unknown Unknown Problem MEDENT ([facility]) Unknown Unknown Problem MEDENT ([facility]) Unknown Unknown Problem MEDENT ([facility]) mother Encounters Encounter Providers Location Date Indications Data Source(s ) [place] [address] [facility] [address] 03/10/2021 12:00:00 AM EDT eCW1 ([facility]) Isai Kohler MD: [address] [place] [phone], Ph. Attender: Isai Kohler MD [facility] Medical 03/07/2021 12:00:00 AM EDT ABHINAV ([facility]) Unknown [address] [facility] [address] 03/07/2021 12:00:00 AM EDT eCW1 ([facility]) Emergency Attender: AMNA [place]: Isaiah Kohler MD EMERGENCY ROOM-ER 03/05/2021 10:46:00 AM EDT - 03/05/2021 02:10:00 PM EDT [facility] Patient discharged. Isai Kohler MD: [address] [place] [phone], Ph. Attender: Isai Kohler MD [facility] Medical 03/03/2021 12:00:00 AM EDT ABHINAV ([facility]) Isai Kohler MD: [address] [place] [phone], Ph. Attender: Isai Kohler MD [facility] Medical 03/03/2021 12:00:00 AM EDT ABHINAV ([facility]) Isai Kohler MD: [address] [place] [phone], Ph. Attender: Isai Kohler MD [facility] Medical 02/28/2021 12:00:00 AM EDT ABHINAV ([facility]) Isai Kohler MD: [address] [place] [phone], Ph. Attender: Isai Kohler MD [facility] Medical 02/28/2021 12:00:00 AM EDT ABHINAV ([facility]) Isai Kohler MD: [address] [place] [phone], Ph. Attender: Isai Kohler MD [facility] Medical 02/28/2021 12:00:00 AM EDT ABHINAV ([facility]) [place] [address] [facility] [address] 02/21/2021 12:00:00 AM EDT eCW1 ([facility]) [place] [address] [facility] [address] 02/19/2021 12:00:00 AM EDT eCW1 ([facility]) [place] [address] [facility] [address] 02/19/2021 12:00:00 AM EDT eCW1 ([facility]) Emergency Attender: AMNA [place]: Isaiah Kohler MD EMERGENCY ROOM-ER 02/17/2021 09:13:00 PM EDT - 02/17/2021 10:42:00 PM EDT [facility] Patient discharged. [place] [address] [facility] [address] 02/13/2021 12:00:00 AM EDT eCW1 ([facility]) Outpatient [address] [facility] [place] [address] 02/12/2021 12:00:00 AM EDT eCW1 ([facility]) ( ESTOB) [facility] Est OB [address] [place] [address] 01/13/2021 12:00:00 AM EDT eCW1 ([facility]) ( ESTOB) [facility] Est OB [address] [place] [address] 12/16/2020 12:00:00 AM EDT eCW1 ([facility]) ( ESTOB) [facility] Est OB [address] [place] [address] 2020 12:00:00 AM EDT eCW1 ([facility]) Outpatient Attender: MARLIN smallwood 11/12/2020 05:20:00 PM EDT MEDENT ([facility]) ( ESTOB) [facility] Est OB [address] [place] [address] 10/18/2020 12:00:00 AM EDT eCW1 ([facility]) ( ESTOB) [facility] Est OB [address] [place] [address] 09/20/2020 12:00:00 AM EDT eCW1 ([facility]) OutpatientPREV VISIT, EST, AGE 18-39 Attender: Sandra Montero CNM [facility] 03/18/2020 09:35:00 AM EDT - 03/18/2020 09:35:00 AM ED T Encntr screen for infections w sexl mode of transmissAbscess of vulva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) w/o abn findingsEncounter for surveillance of injectable contraceptiveEncounter for test, result negativeEncounter for oth general cnsl and advice on contraceptionOther sex counselingHuman immunodeficiency virus [HIV] counseling NextGen ([facility]) Encntr screen for infections w sexl mode of transmiss Abscess of vulva 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) w/o abn findings Encounter for surveillance of injectable contraceptive Encounter for test, result neg ative Encounter for oth general cnsl and advic e on contraception Other sex counseling Human immunodeficiency virus [HIV] couns eling Medications Medication Brand Name Start Date Product Form Dose Route Admi nistrative Instructions Pharmacy Instructions Status Indications Reaction Description Data Source(s) buspirone hydrochloride 5 MG Oral Tablet busPIRone HCl 5 MG busPIRone HCl 5 MG 02/19/2021 12:00:00 AM EDT 1.0 {tablet} active busPIRone HCl 5 MG eCW1 ([facility]) buspirone hydrochloride 5 MG Oral Tablet busPIRone HCl 5 MG busPIRone HCl 5 MG 02/19/2021 12:00:00 AM EDT 1.0 {tablet} active busPIRone HCl 5 MG eCW1 ([facility]) buspirone hydrochloride 5 MG Oral Tablet busPIRone HCl 5 MG busPIRone HCl 5 MG 02/19/2021 12:00:00 AM EDT 1.0 {tablet} active busPIRone HCl 5 MG eCW1 ([facility]) buspirone hydrochloride 5 MG Oral Tablet busPIRone HCl 5 MG busPIRone HCl 5 MG 02/19/2021 12:00:00 AM EDT 1.0 {tablet} suspende d busPIRone HCl 5 MG eCW1 ([facility]) buspirone hydrochloride 5 MG Oral Tablet busPIRone HCl 5 MG busPIRone HCl 5 MG 02/19/2021 12:00:00 AM EDT 1.0 {tablet} active busPIRone HCl 5 MG eCW1 ([facility]) buspirone hydrochloride 5 MG Oral Tablet busPIRone HCl 5 MG busPIRone HCl 5 MG 02/19/2021 12:00:00 AM EDT 1.0 {tablet} active busPIRone HCl 5 MG eCW1 ([facility]) Labetalol hydrochloride 200 MG Oral Tablet Labetalol H Cl 200 MG Labetalol HCl 200 MG 02/12/2021 12:00:00 AM EDT 1.0 {tablet} suspe nded Labetalol HCl 200 MG eCW1 ([facility]) Labetalol hydrochloride 200 MG Oral Tablet Labetalol H Cl 200 MG Labetalol HCl 200 MG 02/12/2021 12:00:00 AM EDT 1.0 {tablet} suspe nded Labetalol HCl 200 MG eCW1 ([facility]) Labetalol hydrochloride 200 MG Oral Tablet Labetalol H Cl 200 MG Labetalol HCl 200 MG 02/12/2021 12:00:00 AM EDT 1.0 {tablet} suspe nded Labetalol HCl 200 MG eCW1 ([facility]) Labetalol hydrochloride 200 MG Oral Tablet Labetalol H Cl 200 MG Labetalol HCl 200 MG 02/12/2021 12:00:00 AM EDT 1.0 {tablet} suspe nded Labetalol HCl 200 MG eCW1 ([facility]) Labetalol hydrochloride 200 MG Oral Tablet Labetalol H Cl 200 MG Labetalol HCl 200 MG 02/12/2021 12:00:00 AM EDT 1.0 {tablet} activ e Labetalol HCl 200 MG eCW1 ([facility]) Labetalol hydrochloride 200 MG Oral Tablet Labetalol H Cl 200 MG Labetalol HCl 200 MG 02/12/2021 12:00:00 AM EDT 1.0 {tablet} suspe nded Labetalol HCl 200 MG eCW1 ([facility]) Labetalol hydrochloride 200 MG Oral Tablet Labetalol H Cl 200 MG Labetalol HCl 200 MG 02/12/2021 12:00:00 AM EDT 1.0 {tablet} suspe nded Labetalol HCl 200 MG eCW1 ([facility]) Amoxicillin 875 MG Oral Tablet Amoxicillin 11/12/2020 12:00:00 AM EDT active MEDENT ([facility]) 200 ACTUAT Albuterol 0.09 MG/ACTUAT Metered Dose Inhaler [Pr oAir] Proair HFA 11/12/2020 12:00:00 AM EDT RESPIRATORY active MEDENT ([facility]) medroxyprogesterone acetate 150 MG/ML In jectable Suspension medroxyprogesterone 150 mg/mL intramuscular suspension medroxyprogesterone 150 mg/mL intramuscu lar suspension 03/18/2020 12:00:00 AM EDT active IM every 10-13 weeks NextGen ([facility]) medroxyprogesterone acetate 150 MG/ML In jectable Suspension medroxyprogesterone 150 mg/mL intramuscular suspension medroxyprogesterone 150 mg/mL intramuscu lar suspension 01/12/2019 12:00:00 AM EDT active IM every 10-13 weeks NextGen ([facility]) Labetalol hydrochloride 200 MG Oral Tabl et labetalol 200 mg tablet TAKE 1 TABLET BY MOUTH TWICE DAILY labetalol 200 mg tablet TAKE 1 TABLET BY MOUTH TWICE DAILY completed labetalol hydroc hloride 200 MG Oral Tablet ABHINAV ([facility]) Amoxicillin 875 MG Oral Tablet amoxicill in 875 mg tablet TAKE 1 TABLET BY MOUTH EVERY 12 HOURS FOR 10 DAYS amoxicillin 875 mg tablet TAKE 1 TABLET BY MOUTH EVERY 12 HOURS FOR 10 DAYS completed amoxicillin 875 MG Oral Tablet ABHINAV ([facility]) Labetalol hydrochloride 200 MG Oral Tabl et labetalol 200 mg tablet TAKE 1 TABLET BY MOUTH TWICE DAILY labetalol 200 mg tablet TAKE 1 TABLET BY MOUTH TWICE DAILY completed labetalol hydroc hloride 200 MG Oral Tablet ABHINAV ([facility]) Amoxicillin 875 MG Oral Tablet amoxicill in 875 mg tablet TAKE 1 TABLET BY MOUTH EVERY 12 HOURS FOR 10 DAYS amoxicillin 875 mg tablet TAKE 1 TABLET BY MOUTH EVERY 12 HOURS FOR 10 DAYS completed amoxicillin 875 MG Oral Tablet ABHINAV ([facility]) buspirone hydrochloride 5 MG Oral Tablet buspirone 5 mg tablet Take 1 tablet twice a day by oral route. buspirone 5 mg tablet Take 1 tablet twic e a day by oral route. 1 completed buspirone hydrochloride 5 MG Oral Tablet ABHINAV ([facility]) Insurance Providers Payer name Policy type / Coverage type Policy ID Covered alliance party ID Covered alliance party's relationship to fortune Policy Fortune Plan Information [facility] Health Maintenance Organization ([facility]) [id number] Self [id number] Medicaid S [id number] S [id number] [employer] [facility] [id number] SP [id number] Managed Care - [facility] P [id number] S [id number] [employer] COMMUNITY PLAN MCDO [id number] SP [id number] [facility] [id number] self [facility] MEDICAID [id number] S [id number] [facility] Health Maintenance Organization (O) [id number] Self [id number] [facility] Health Maintenance Organization (HMO) [id number] Self [employer] COMM[employer]AN MCDO [id number] SP [id number] [facility] [id number] SP [id number] [facility] [id number] SP [id number] [facility] MEDICAID [id number] S [id number] [facility] [id number] SP [id number] [facility] MEDICAID UNAVAILABLE S UNAVAILABLE Medicaid [facility] Part B [id number] Self [id number] [facility](MCAID) O [id number] S [id number] Problems, Conditions, and Diagnoses Code Display Name Description Problem Type Effective Dates Data Source(s) Z79.899 Other half-way (current) drug therapy O THER HALFWAY (CURRENT) DRUG THERAPY Diagnosis 03/05/2021 10:46:00 AM [facility] F17.210 Nicotine dependence, cigarettes, uncompl icated NICOTINE DEPENDENCE, CIGARETTES, UNCOMPLICATED Diagnosis 03/05/2021 10:46:00 AM EDT [facility] I10 Essential (primary) hypertension ESSENTIAL (PRIMARY) H YPERTENSION Diagnosis 03/05/2021 10:46:00 AM [facility] F41.9 Anxiety disorder, unspecified ANXIETY DISORDER, UNSPEC IFIED Diagnosis 03/05/2021 10:46:00 AM [facility] R07.89 Other chest pain OTHER CHEST PAIN Diagnosis 03/05/2021 10 :46:00 AM [facility] F41.8 [id number] Other specified anxiety disorders Problem 03/10/2021 12:00:00 AM EDT eC ([facility]) F53.0 [id number] depression Problem 12:00:00 AM EDT eCW1 ([facility]) O16.5 Unspecified maternal hypertension, compl icating the puerperium Unspecified maternal hypertension, complicating the puerperium Problem 12:00:00 AM EDT eC1 ([facility]) [id number] Elevated blood-pressure reading without diagnosis of hypertension Elevated Blood-pressure Reading without Diagnosis of Hypertension Problem 02/28/2021 12:00:00 AM EDT ABHINAV ([facility]) [id number] Tobacco user Tobacco User Problem 02/28/2021 12:00:00 A M EDT ABHINAV ([facility]) [id number] Elevated blood-pressure reading without diagnosis of hypertension Elevated Blood-pressure Reading without Diagnosis of Hypertension Problem 02/28/2021 12:00:00 AM EDT ABHINAV ([facility]) [id number] Tobacco user Tobacco User Problem 02/28/2021 12:00:00 A M EDT ABHINAV ([facility]) 205570679 Elevated blood-pressure reading without diagnosis of hypertension Elevated Blood-pressure Reading without Diagnosis of Hypertension Problem 02/28/2021 12:00:00 AM EDT ABHINAV ([facility]) [id number] Tobacco user Tobacco User Problem 02/28/2021 12:00:00 A M EDT ABHINAV ([facility]) Z01.30 [id number] Blood pressure check Problem 02/25/2021 12:0 0:00 AM EDT eCW1 ([facility]) I10 [id number] Hypertension Problem 02/12/2021 12:00:00 AM EDT eCW1 ([facility]) Z34.80 care Supervision of other normal P roblem 09/16/2020 12:00:00 AM EDT eCW1 ([facility]) Surgeries/Procedures Procedure Description Date Indications Data Source(s) Nurse Visit Blood Pressure Check 02/19/2021 12:00:00 A M EDT eCW1 ([facility]) NURSE ONLY DEPO INJ. RN/ENGAGEMENT QUALITY CONSULTANT Only 020 12:00:00 AM EDT - 03/18/2020 12:00:00 AM EDT NextGen ([facility]) Depo/Medroxyprogesterone Inj. 150 Mg Nurse/CA 03/18/2020 12:00:00 AM EDT - 03/18/2020 12:00:00 AM EDT [facility]Gen ([facility]) CVR BC Ending Method HORM.INJ. 3 MOS 12:00:00 AM EDT - 03/18/2020 12:00:00 AM EDT [facility]Gen ([facility]) CVR Cripple Cutter.Svc. STI / H 03/18/2020 12:00:00 AM EDT - 03/18/2020 12:00:00 AM EDT [facility] ([facility]) CVR Cripple Cutter.Svc. Other 03/18/2020 12:00:00 AM EDT - 2019 12:00:00 AM EDT [facility] ([facility]) CVR Cripple Cutter.Svc. Contraceptive 03/18/2020 12 :00:00 AM EDT - 03/18/2020 12:00:00 AM EDT [facility] ([facility]) CVR Med.Svc. Height/Weight 03/18/2020 12 :00:00 AM EDT - 03/18/2020 12:00:00 AM EDT [facility] ([facility]) CVR Blood Pressure 03/18/2020 12:00:00 AM EDT - 2019 12:00:00 AM EDT [facility] ([facility]) HCS Without Test 03/18/2020 12:00:00 AM EDT - 03/18/20 20 12:00:00 AM EDT [facility] ([facility]) N.GONORRHOEAE, SWAB 03/18/2020 12:00:00 AM EDT - 03/18 12:00:00 AM EDT [facility] ([facility]) CHYLMD TRACH, SWAB 03/18/2020 12:00:00 AM EDT - 2019 12:00:00 AM EDT [facility] ([facility]) PREV VISIT, EST, AGE 18-39 03/18/2020 12 :00:00 AM EDT - 03/18/2020 12:00:00 AM EDT [facility] ([facility]) URINE TEST 03/18/2020 12:00:00 AM EDT - 03/18/2020 12:00:00 AM EDT [facility] ([facility]) Results ID Date Data Source [id number] 03/07/2021 08:41:00 AM EDT [facility] ([facility]) Name Value Range Interpretation Code Description Data Zenobia rce(s) Supporting Document(s) blood 3+ Abnormal (applies to non-numeric res ults) Blood [facility] ([facility]) bilirubin neg Bilirubin [facility] ([facility]) ketone neg Ketone [facility] ([facility]) glucose neg Glucose [facility] ([facility]) leukocytes neg Leukocytes [facility] ([facility]) nitrite neg Nitrite [facility] ([facility]) pH Ph [facility] ([facility]) protein neg Protein [facility] ([facility]) specific gravity Specific [place] [facility] [place] ([facility]) urobilinogen Urobilinogen [facility] ([facility]) ID Date Data Source [id number] 03/05/2021 07:33:00 PM EDT [facility] Patient: GERHARD DANE Miranda Observation [facility].VisitID: [id number] [place] [address] [phone], FRegistration Date/Time: 03/05/2021 10:03 Weight:86.1 kg. Height/Length:61 inches. BMI:35.9 FAMILY HISTORYNo significant family medical history. (Electronically signed by Amna Uriarte P.A. 03/05/2021 18:59) Name Value Range Interpretation Code Description Data Zenobia rce(s) Supporting Document(s) ID Date Data Source [id number] 03/05/2021 01:20:00 PM EDT [facility] DATE OF EXAMINATION: 03/05/2021 11:[address] PULMONARY ANGIOGRAM HISTORY: Elevated d-dimer TECHNIQUE: This CT exam was performed using the following dose reduction technique:automated exposure control, adjustment of mA and/or kV according to thepatient's size, and use of iterative reconstruction technique. FINDINGS: Pulmonary Arteries: No pulmonary emboliAorta: No dissection or anLungs: Well-expanded. No focal consolidationPleural space: No pleural effusion or pleural airHeart: Grossly unremarkable No pericardial effusion IMPRESSION: No pulmonary emboli Electronically signed in PS360 by: Irina Enrique M.D. 03/05/2021 13:15 EDT Name Value Range Interpretation Code Description Data Zenobia rce(s) Supporting Document(s) ID Date Data Source [id number] 03/05/2021 10:44:00 AM EDT [place] ([facility]) Name Value Range Interpretation Code Description Data Zenobia rce(s) Supporting Document(s) uhcg negative negative Uhcg [place] ([facility]) ID Date Data Source [id number] 03/05/2021 10:44:00 AM EDT [place] ([facility]) Name Value Range Interpretation Code Description Data Zenobia rce(s) Supporting Document(s) URBC 1-3 0-3 Urbc [place] ([facility]) ID Date Data Source [id number] 03/05/2021 10:44:00 AM EDT [place] ([facility]) Name Value Range Interpretation Code Description Data Zenobia rce(s) Supporting Document(s) ucol yellow Ucol [place] ([facility]) uapp clear Uapp [facility] ([facility]) ugl negative negative Ugl [facility] ([facility]) ubil negative negative Ubil [facility] ([facility]) sgu < 1.005 1.005-1.030 Below low normal Sgu [facility] ([facility]) uket negative negative Uket [facility] ([facility]) monique 5.0-9.0 Monique [facility] ([facility]) ubl reflex 3+(large) negative Above high normal Ubl Reflex [facility] ([facility]) upro reflex negative negative Upro Reflex [facility] ([facility]) uuro normal(0.2-1) 0-1 Uuro [facility] ([facility]) unit reflex negative negative Unit Reflex [facility] ([facility]) ule reflex negative negative Ule Reflex [facility] ([facility]) ID Date Data Source [id number] 03/05/2021 10:44:00 AM EDT [facility] TSYSORDER [id number] Name Value Range Interpretation Code Description Data Zenobia rce(s) Supporting Document(s) HCG URINE NEGATIVE NEGATIVE [facility] ID Date Data Source [id number] 03/05/2021 11:01:00 AM EDT [facility] TSYSORDER [id number] Name Value Range Interpretation Code Description Data Zenobia rce(s) Supporting Document(s) URINE RBC 1-3 /hpf 0-3 [facility] ID Date Data Source [id number] 03/05/2021 11:01:00 AM EDT [facility] TSYSORDER [id number] Name Value Range Interpretation Code Description Data Zenobia rce(s) Supporting Document(s) URINE COLOR. [facility] URINE APPEARANCE CLEAR [facility] URINE GLUCOSE (UA) NEGATIVE mg/dL NEGATIVE [facility] URINE BILIRUBIN NEGATIVE NEGATIVE [facility] URINE KETONE NEGATIVE mg/dL NEGATIVE [facility] SPECIFIC GRAVITY,URINE < 1.005 1.005-1.030 L [facility] URINE BLOOD 3+(LARGE) NEGATIVE H [facility] PH,URINE 6.0 5.0-9.0 [facility] URINE PROTEIN NEGATIVE mg/dL NEGATIVE [facility] URINE UROBILINOGEN NORMAL(0.2-1) mg/dL 0-1 R [facility] URINE NITRATE NEGATIVE NEGATIVE [facility] URINE LEUKOCYTE ESTERASE NEGATIVE NEGATIVE [facility] ID Date Data Source [id number] 03/05/2021 10:40:00 AM EDT [place] ([facility]) Name Value Range Interpretation Code Description Data Zenobia rce(s) Supporting Document(s) lip 117 U/L 73-393 Lip [place] ([facility]) ID Date Data Source [id number] 03/05/2021 10:40:00 AM EDT [place] ([facility]) Name Value Range Interpretation Code Description Data Zenobia rce(s) Supporting Document(s) CPK 64 U/L 26-192 Cpk [place] ([facility]) ID Date Data Source [id number] 03/05/2021 10:40:00 AM EDT [place] ([facility]) Name Value Range Interpretation Code Description Data Zenobia rce(s) Supporting Document(s) trophs < 4.0 0-60.4 Trophs [place] ([facility]) ID Date Data Source [id number] 03/05/2021 10:40:00 AM EDT [facility]) Name Value Range Interpretation Code Description Data Zenobia rce(s) Supporting Document(s) mg 1.8 mg/dL 1.8-2.4 mg [place] ([facility]) ID Date Data Source [id number] 03/05/2021 10:40:00 AM EDT [facility]) Name Value Range Interpretation Code Description Data Zenobia rce(s) Supporting Document(s) BUN 2 mg/dL 7-18 Below low normal Bun [facility] ( [facility]) glu 101 mg/dL 74-106 Glu [place] ([facility]) cre 0.80 mg/dL 0.6-1.0 Cre [facility] ([facility]) Na 141 mmol/L 136-145 Na [facility] ([facility]) K 3.0 mmol/L 3.5-5.1 Below low normal K [facility] ( [facility]) Ca 9.4 mg/dL 8.5-10.1 Ca [facility] ([facility]) cL 103 mmol/L 98-107 Cl [facility] ([facility]) CO2 25 mmol/L 21-32 Co2 [facility] ([facility]) AST 14 U/L 15-37 Below low normal Ast [facility] ( [facility]) GFR 84 mL/min Gfr [facility] ([facility]) gap 13.0 mmol/L 5-12 Above high normal Gap [facility] ([facility]) alk 105 U/L 46-116 Alk [facility] ([facility]) TP 7.8 g/dL 6.4-8.2 Tp [facility] ([facility]) ALT 23 U/L 12-78 Alt [facility] ([facility]) tbili 0.8 mg/dL 0.2-1.0 Tbili [facility] ([facility]) alb 4.0 gm/dL 3.4-5.0 Alb [facility] ([facility]) ID Date Data Source [id number] 03/05/2021 10:40:00 AM EDT [facility] ([facility]) Name Value Range Interpretation Code Description Data Zenobia rce(s) Supporting Document(s) ptp 10.8 seconds 9.1-11.6 Ptp [facility] ([facility]) INR 0.87-1.06 Inr [facility] ([facility]) ID Date Data Source [id number] 03/05/2021 10:40:00 AM EDT [facility] ([facility]) Name Value Range Interpretation Code Description Data Zenobia rce(s) Supporting Document(s) dd 0.37 mg/lfeu 0.19-0.60 Dd [facility] ([facility]) ID Date Data Source [id number] 03/05/2021 10:40:00 AM EDT [facility] ([facility]) Name Value Range Interpretation Code Description Data Zenobia rce(s) Supporting Document(s) PTT 25.1 seconds 21.2-27.3 Ptt [facility] ([facility]) ID Date Data Source [id number] 03/05/2021 10:40:00 AM EDT [facility] ([facility]) Name Value Range Interpretation Code Description Data Zenobia rce(s) Supporting Document(s) TSH 0.862 uIU/mL 0.358-3.74 Tsh [facility] ([facility]) ID Date Data Source [id number] 03/05/2021 10:40:00 AM EDT [facility] ([facility]) Name Value Range Interpretation Code Description Data Zenobia rce(s) Supporting Document(s) vph 7.31-7.41 Above high normal Vph [place] ([facility]) vpco2 35.1 mmHg 41-51 Below low normal Vpco2 [facility] ( [facility]) vpo2 38 mmHg 35-42 Vpo2 [facility] ([facility]) vhco3 22.9 mEq/L 24.0-25.0 Below low normal Vhco3 [facility] ( [facility]) vo2 sat 70.8 % 68-77 Vo2 Sat [facility] ([facility]) vbe -3.0-3.0 Vbe [facility] ([facility]) vctco2 23.9 mmol/L 23.0-32.0 Vctco2 [facility] ([facility]) ID Date Data Source [id number] 03/05/2021 10:40:00 AM [facility] Name Value Range Interpretation Code Description Data Zenobia rce(s) Supporting Document(s) WBC 8.0 K/mm3 4.0-10.0 Wbc [facility] ([facility]) RBC 4.70 M/mm3 4.00-5.50 Rbc [facility] ([facility]) HGB 14.8 gm/dL 12.0-16.0 Hgb [facility] ([facility]) MCV 90.6 fL 80-96 Mcv [facility] ([facility]) HCT 42.6 % 36.0-48.8 Hct [facility] ([facility]) MCH 31.5 pg 27.0-31.0 Above high normal Mch [facility] ([facility]) plt 365 K/mm3 172-450 Plt [facility] ([facility]) RDW 12.6 % 10.0-14.5 Rdw [facility] ([facility]) MCHC 34.7 g/dL 32.0-36.0 Mchc [facility] ([facility]) gr% 61.8 % 50-80.0 Gr% [facility] ([facility]) MPV 9.6 fL 9.0-13.0 Mpv [facility] ([facility]) Ig% 0.1 % 0.0-0.2 Ig% [facility] ([facility]) MO% 7.0 % 2.0-10.0 Mo% [facility] ([facility]) ly% 29.7 % 25.0-50.0 Ly% [facility] ([facility]) eo% 1.1 % 0-5.0 Eo% [facility] ([facility]) ba% 0.3 % 0.0-2.0 Ba% [facility] ([facility]) gr# 4.9 K/mm3 2.0-8.00 Gr# [facility] ([facility]) MO# 0.6 K/mm3 0.10-1.20 Mo# [facility] ([facility]) Ig# 0.0 K/mm3 0.0-0.2 Ig# [facility] ([facility]) ly# 2.4 K/mm3 1.0-5.0 Ly# [facility] ([facility]) ba# 0.0 K/mm3 0.0-0.2 Ba# [facility] ([facility]) eo# 0.1 K/mm3 0.0-0.5 Eo# [facility] ([facility]) ID Date Data Source [id number] 03/05/2021 11:40:00 AM EDT [facility] TSYSORDER [id number] Name Value Range Interpretation Code Description Data Zenobia rce(s) Supporting Document(s) MAGNESIUM 1.8 mg/dL 1.8-2.4 [facility] ID Date Data Source [id number] 03/05/2021 11:40:00 AM EDT [facility] TSYSORDER [id number] Name Value Range Interpretation Code Description Data Zenobia rce(s) Supporting Document(s) TROPONIN-HIGH SENSITIVITY < 4.0 ng/L 0-60.4 [facility] ID Date Data Source [id number] 03/05/2021 11:40:00 AM EDT [facility] TSYSORDER [id number] Name Value Range Interpretation Code Description Data Zenobia rce(s) Supporting Document(s) CREATINE PHOSPHOKINASE 64 U/L 26-192 [facility] ID Date Data Source [id number] 03/05/2021 11:40:00 AM EDT [facility] TSYSORDER [id number] Name Value Range Interpretation Code Description Data Zenobia rce(s) Supporting Document(s) LIPASE 117 U/L 73-393 [facility] ID Date Data Source [id number] 03/05/2021 11:40:00 AM EDT [facility] TSYSORDER [id number] Name Value Range Interpretation Code Description Data Zenobia rce(s) Supporting Document(s) GLUCOSE 101 mg/dL 74-106 [facility] BLOOD UREA NITROGEN 2 mg/dL 7-18 L [facility] CREATININE 0.80 mg/dL 0.6-1.0 [facility] SODIUM 141 mmol/L 136-145 [facility] POTASSIUM 3.0 mmol/L 3.5-5.1 L [facility] CHLORIDE 103 mmol/L 98-107 [facility] CO2 25 mmol/L 21-32 [facility] CALCIUM 9.4 mg/dL 8.5-10.1 [facility] ANION GAP 13.0 mmol/L 5-12 H [facility] GLOMERULAR FILTRATION RATE 84 mL/min [facility] GFR IS CALCULATED IN mL/min/1.73m2 LYSSA L FUNCTION: >90MILDLY DECREASED: 60-89MILDY TO MODERATELY DECREASED: 45-59 MODERATELY TO SEVERELY DECREASED: 30-44SEVERELY DECREASED: 15-29RENAL FAILURE: <15 AST 14 U/L 15-37 [facility] ALT 23 U/L 12-78 [facility] ALKALINE PHOSPHATASE 105 U/L 46-116 [facility] pital TOTAL BILIRUBIN 0.8 mg/dL 0.2-1.0 [facility] TOTAL PROTEIN 7.8 g/dl 6.4-8.2 [facility] ALBUMIN 4.0 gm/dL 3.4-5.0 [facility] ID Date Data Source [id number] 03/05/2021 11:37:00 AM EDT [facility] l TSYSORDER [id number] Name Value Range Interpretation Code Description Data Zenobia rce(s) Supporting Document(s) DDIMER 0.37 mg/LFEU 0.19-0.60 [facility] ID Date Data Source [id number] 03/05/2021 11:37:00 AM EDT [facility] TSYSORDER [id number] Name Value Range Interpretation Code Description Data Zenobia rce(s) Supporting Document(s) PARTIAL THROMBOPLASTIN TIME 25.1 SECONDS 21.2-27.3 [facility] ID Date Data Source [id number] 03/05/2021 11:37:00 AM T [facility] TSYSORDER [id number] Name Value Range Interpretation Code Description Data Zenobia rce(s) Supporting Document(s) PROTHROMBIN TIME (PATIENT) 10.8 SECONDS 9.1-11.6 [facility] INR 1.04 0.87-1.06 [facility] ID Date Data Source [id number] 03/05/2021 11:26:00 AM EDT [facility] TSYSORDER [id number] Name Value Range Interpretation Code Description Data Zenobia rce(s) Supporting Document(s) TSH 0.862 uIU/mL 0.358-3.74 [facility] ID Date Data Source [id number] 03/05/2021 10:51:00 AM EDT [facility] TSYSORDER [id number] Name Value Range Interpretation Code Description Data Zenobia rce(s) Supporting Document(s) PH 7.43 7.31-7.41 H [facility] VENOUS PCO2 35.1 mmHg 41-51 L [facility] VENOUS PO2 38 mmHg 35-42 [facility] VENOUS BLODD O2 SATURATION 70.8 % 68-77 [facility] VENOUS BLOOD HCO3 22.9 meq/L 24.0-25.0 L [facility] VENOUS BASE EXCESS -0.4 -3.0-3.0 [facility] VENOUS BLOOD CO2 23.9 mmol/L 23.0-32.0 [facility] ID Date Data Source [id number] 03/05/2021 10:51:00 AM EDT [facility] TSYSORDER [id number] Name Value Range Interpretation Code Description Data Zenobia rce(s) Supporting Document(s) WHITE BLOOD COUNT 8.0 K/mm3 4.0-10.0 [facility] RED BLOOD COUNT 4.70 M/mm3 4.00-5.50 [facility] HEMOGLOBIN 14.8 gm/dL 12.0-16.0 [facility] HEMATOCRIT 42.6 % 36.0-48.8 [facility] MEAN CELL VOLUME 90.6 fl 80-96 [facility] MEAN CORPUSCULAR HEMOGLOBIN 31.5 pg 27.0-31.0 H [facility] MEAN CORPUSCULAR HGB CONC 34.7 g/dl 32.0-36.0 [facility] RED CELL DISTRIBUTION WIDTH 12.6 % 10.0-14.5 [facility] PLATELET COUNT 365 K/mm3 172-450 [facility] MEAN PLATELET VOLUME 9.6 fl 9.0-13.0 [facility] pital GRAN % 61.8 % 50-80.0 [facility] IG% 0.1 % 0.0-0.2 [facility] LYMPH % 29.7 % 25.0-50.0 [facility] MONO % 7.0 % 2.0-10.0 [facility] EOS % 1.1 % 0-5.0 [facility] BASO % 0.3 % 0.0-2.0 [facility] GRAN # 4.9 K/mm3 2.0-8.00 [facility] IG# 0.0 K/mm3 0.0-0.2 [facility] LYMPH # 2.4 K/mm3 1.0-5.0 [facility] MONO # 0.6 K/mm3 0.10-1.20 [facility] EOS # 0.1 K/mm3 0.0-0.5 [facility] BASO # 0.0 K/mm3 0.0-0.2 [facility] ID Date Data Source [id number] 02/18/2021 01:16:00 AM EDT [facility] Patient: DANE HENNESSY Observation [facility].VisitID: [id number] [place] [address] [phone], FRegistration Date/Time: 02/17/2021 20:13 Weight:92.5 kg (S). Height/Length:61 inches (S). BMI:38.6 PAST HISTORYProblems:Anxiety. Additional Surgeries:C/s x 3. Medications:None. Allergies:Sulfate. FAMILY HISTORYNo significant family medical history. (Electronically signed by Amna Uriarte, PAnahi 02/18/2021 01:13) Name Value Range Interpretation Code Description Data Zenobia rce(s) Supporting Document(s) ID Date Data Source [id number] 02/17/2021 08:45:00 PM EDT [place] ([facility]) Name Value Range Interpretation Code Description Data Zenobia rce(s) Supporting Document(s) TSH 1.916 uIU/mL 0.358-3.74 Tsh [place] ([facility]) ID Date Data Source [id number] 02/17/2021 08:45:00 PM EDT [facility] ([facility]) Name Value Range Interpretation Code Description Data Zenobia rce(s) Supporting Document(s) trophs 4.2 NG/L 0-60.4 Trophs [facility] ([facility]) ID Date Data Source [id number] 02/17/2021 08:45:00 PM EDT [facility] ([facility]) Name Value Range Interpretation Code Description Data Zenobia rce(s) Supporting Document(s) lip 103 U/L 73-393 Lip [facility] ([facility]) ID Date Data Source [id number] 02/17/2021 08:45:00 PM EDT [facility] ([facility]) Name Value Range Interpretation Code Description Data Zenobia rce(s) Supporting Document(s) mg 1.9 mg/dL 1.8-2.4 mg [facility] ([facility]) ID Date Data Source [id number] 02/17/2021 08:45:00 PM EDT [facility] ([facility]) Name Value Range Interpretation Code Description Data Zenobia rce(s) Supporting Document(s) CPK 62 U/L 26-192 Cpk [facility] ([facility]) ID Date Data Source [id number] 02/17/2021 08:45:00 PM EDT [facility] ([facility]) Name Value Range Interpretation Code Description Data [place]obia rce(s) Supporting Document(s) BUN 5 mg/dL 7-18 Below low normal Bun [facility] ( [facility]) glu 90 mg/dL 74-106 Glu [facility] ([facility]) Na 141 mmol/L 136-145 Na [facility] ([facility]) K 3.8 mmol/L 3.5-5.1 K [facility] ([facility]) cre 0.81 mg/dL 0.6-1.0 Cre [facility] ([facility]) cL 104 mmol/L 98-107 Cl [facility] ([facility]) CO2 26 mmol/L 21-32 Co2 [facility] ([facility]) gap 11.0 mmol/L 5-12 Gap [facility] ([facility]) Ca 9.1 mg/dL 8.5-10.1 Ca [facility] ([facility]) AST 19 U/L 15-37 Ast [facility] ([facility]) ALT 22 U/L 12-78 Alt [facility] ([facility]) GFR 82 mL/min Gfr [facility] ([facility]) alk 107 U/L 46-116 Alk [facility] ([facility]) TP 7.1 g/dL 6.4-8.2 Tp [facility] ([facility]) tbili 0.6 mg/dL 0.2-1.0 Tbili [facility] ([facility]) alb 3.7 gm/dL 3.4-5.0 Alb [facility] ([facility]) ID Date Data Source [id number] 02/17/2021 08:45:00 PM EDT [facility] ([facility]) Name Value Range Interpretation Code Description Data Zenobia rce(s) Supporting Document(s) TSH 1.916 uIU/mL 0.358-3.74 Tsh [facility] ([facility]) ID Date Data Source [id number] 02/17/2021 08:45:00 PM EDT [facility] ([facility]) Name Value Range Interpretation Code Description Data Zenobia rce(s) Supporting Document(s) trophs 4.2 NG/L 0-60.4 Trophs [facility] ([facility]) ID Date Data Source [id number] 02/17/2021 08:45:00 PM EDT [facility] ([facility]) Name Value Range Interpretation Code Description Data [place]obia rce(s) Supporting Document(s) lip 103 U/L 73-393 Lip [facility] ([facility]) ID Date Data Source [id number] 02/17/2021 08:45:00 PM EDT [facility] ([facility]) Name Value Range Interpretation Code Description Data [place]obia rce(s) Supporting Document(s) mg 1.9 mg/dL 1.8-2.4 mg [facility] ([facility]) ID Date Data Source [id number] 02/17/2021 08:45:00 PM EDT ABHINAV ([facility]) Name Value Range Interpretation Code Description Data [place] rce(s) Supporting Document(s) CPK 62 U/L 26-192 Cpk ABHINAV ([facility]) ID Date Data Source [id number] 02/17/2021 08:45:00 PM EDT ABHINAV ([facility]) Name Value Range Interpretation Code Description Data [place] rce(s) Supporting Document(s) BUN 5 mg/dL 7-18 Below low normal Bun ABHINAV ( [facility]) glu 90 mg/dL 74-106 Glu ABHINAV ([facility]) cL 104 mmol/L 98-107 Cl ABHINAV ([facility]) CO2 26 mmol/L 21-32 Co2 ABHINAV ([facility]) Na 141 mmol/L 136-145 Na ABHINAV ([facility]) cre 0.81 mg/dL 0.6-1.0 Cre [facility] [place] [facility] K 3.8 mmol/L 3.5-5.1 K ABHINAV ([facility]) AST 19 U/L 15-37 Ast ABHINAV ([facility]) gap 11.0 mmol/L 5-12 Gap ABHINAV ([facility]) Ca 9.1 mg/dL 8.5-10.1 Ca ABHINAV ([facility]) GFR 82 mL/min Gfr ABHINAV ([facility]) TP 7.1 g/dL 6.4-8.2 Tp ABHINAV ([facility]) ALT 22 U/L 12-78 Alt ABHINAV ([facility]) alk 107 U/L 46-116 Alk ABHINAV ([facility]) alb 3.7 gm/dL 3.4-5.0 Alb ABHINAV ([facility]) tbili 0.6 mg/dL 0.2-1.0 Tbili ABHINAV ([facility]) ID Date Data Source [id number] 02/17/2021 08:45:00 PM EDT ABHINAV ([facility]) Name Value Range Interpretation Code Description Data Zenobia rce(s) Supporting Document(s) TSH 1.916 uIU/mL 0.358-3.74 Tsh ABHINAV ([facility]) ID Date Data Source [id number] 02/17/2021 08:45:00 PM EDT ABHINAV ([facility]) Name Value Range Interpretation Code Description Data Zenobia rce(s) Supporting Document(s) trophs 4.2 NG/L 0-60.4 Trophs ABHINAV ([facility]) ID Date Data Source [id number] 02/17/2021 08:45:00 PM EDT ABHINAV ([facility]) Name Value Range Interpretation Code Description Data Zenobia rce(s) Supporting Document(s) lip 103 U/L 73-393 Lip ABHINAV ([facility]) ID Date Data Source [id number] 02/17/2021 08:45:00 PM EDT ABHINAV ([facility]) Name Value Range Interpretation Code Description Data Zenobia rce(s) Supporting Document(s) mg 1.9 mg/dL 1.8-2.4 mg ABHINAV ([facility]) ID Date Data Source [id number] 02/17/2021 08:45:00 PM EDT ABHINAV ([facility]) Name Value Range Interpretation Code Description Data Zenobia rce(s) Supporting Document(s) CPK 62 U/L 26-192 Cpk ABHINAV ([facility]) ID Date Data Source [id number] 02/17/2021 08:45:00 PM EDT ABHINAV ([facility]) Name Value Range Interpretation Code Description Data Zenobia rce(s) Supporting Document(s) BUN 5 mg/dL 7-18 Below low normal Bun ABHINAV ( [facility]) glu 90 mg/dL 74-106 Glu ABHINAV ([facility]) cre 0.81 mg/dL 0.6-1.0 Cre ABHINAV ([facility]) K 3.8 mmol/L 3.5-5.1 K ABHINAV ([facility]) cL 104 mmol/L 98-107 Cl ABHINAV ([facility]) Na 141 mmol/L 136-145 Na ABHINAV ([facility]) Ca 9.1 mg/dL 8.5-10.1 Ca ABHINAV ([facility]) CO2 26 mmol/L 21-32 Co2 ABHINAV ([facility]) GFR 82 mL/min Gfr ABHINAV ([facility]) gap 11.0 mmol/L 5-12 Gap ABHINAV ([facility]) ALT 22 U/L 12-78 Alt ABHINAV ([facility]) alk 107 U/L 46-116 Alk ABHINAV ([facility]) tbili 0.6 mg/dL 0.2-1.0 Tbili ABHINAV ([facility]) AST 19 U/L 15-37 Ast ABHINAV ([facility]) TP 7.1 g/dL 6.4-8.2 Tp ABHINAV ([facility]) alb 3.7 gm/dL 3.4-5.0 Alb ABHINAV ([facility]) ID Date Data Source [id number] 02/17/2021 09:24:00 PM EDT [facility] TSYSORDER [id number] Name Value Range Interpretation Code Description Data Zenobia rce(s) Supporting Document(s) TSH 1.916 uIU/mL 0.358-3.74 [facility] ID Date Data Source [id number] 02/17/2021 09:18:00 PM EDT [facility] TSYSORDER [id number] Name Value Range Interpretation Code Description Data Zenobia rce(s) Supporting Document(s) TROPONIN-HIGH SENSITIVITY 4.2 ng/L 0-60.4 [facility] ID Date Data Source [id number] 02/17/2021 09:18:00 PM EDT [facility] TSYSORDER [id number] Name Value Range Interpretation Code Description Data Zenobia rce(s) Supporting Document(s) CREATINE PHOSPHOKINASE 62 U/L 26-192 [facility] ID Date Data Source [id number] 02/17/2021 09:18:00 PM EDT [facility] [id number] Name Value Range Interpretation Code Description Data Zenobia rce(s) Supporting Document(s) GLUCOSE 90 mg/dL 74-106 [facility] BLOOD UREA NITROGEN 5 mg/dL 7-18 L [facility] CREATININE 0.81 mg/dL 0.6-1.0 [facility] SODIUM 141 mmol/L 136-145 [facility] POTASSIUM 3.8 mmol/L 3.5-5.1 [facility] CHLORIDE 104 mmol/L 98-107 [facility] CO2 26 mmol/L 21-32 [facility] CALCIUM 9.1 mg/dL 8.5-10.1 [facility] ANION GAP 11.0 mmol/L 5-12 [facility] GLOMERULAR FILTRATION RATE 82 mL/min [facility] GFR IS CALCULATED IN mL/min/1.73m2 LYSSA L FUNCTION: >90MILDLY DECREASED: 60-89MILDY TO MODERATELY DECREASED: 45-59 MODERATELY TO SEVERELY DECREASED: 30-44SEVERELY DECREASED: 15-29RENAL FAILURE: <15 AST 19 U/L 15-37 [facility] ALT 22 U/L 12-78 [facility] ALKALINE PHOSPHATASE 107 U/L 46-116 [facility] TOTAL BILIRUBIN 0.6 mg/dL 0.2-1.0 [facility] TOTAL PROTEIN 7.1 g/dl 6.4-8.2 [facility] ALBUMIN 3.7 gm/dL 3.4-5.0 [facility] ID Date Data Source [id number] 02/17/2021 09:18:00 PM EDT [facility] TSYSORDER [id number] Name Value Range Interpretation Code Description Data Zenobia rce(s) Supporting Document(s) MAGNESIUM 1.9 mg/dL 1.8-2.4 [facility] ID Date Data Source [id number] 02/17/2021 09:18:00 PM EDT [facility] TSYSORDER [id number] Name Value Range Interpretation Code Description Data Zenobia rce(s) Supporting Document(s) LIPASE 103 U/L 73-393 [facility] ID Date Data Source [id number] 02/17/2021 09:11:00 PM EDT [facility] TSYSORDER [id number] Name Value Range Interpretation Code Description Data Zenobia rce(s) Supporting Document(s) PARTIAL THROMBOPLASTIN TIME 24.2 SECONDS 21.2-27.3 [facility] ID Date Data Source [id number] 02/17/2021 09:11:00 PM EDT [facility] TSYSORDER [id number] Name Value Range Interpretation Code Description Data Zenobia rce(s) Supporting Document(s) URINE RBC 0-2 /hpf 0-3 [facility] URINE WBC 0-2 /hpf 0-5 H [facility] URINE EPITHELIAL CELLS 2+ /hpf 0 [facility] URINE BACTERIA 1+ NONE SEEN H [facility] ID Date Data Source [id number] 02/17/2021 08:59:00 PM EDT [facility] TSYSORDER [id number] Name Value Range Interpretation Code Description Data Zenobia rce(s) Supporting Document(s) URINE COLOR. YELLOW [facility] URINE APPEARANCE CLEAR [facility] URINE GLUCOSE (UA) NEGATIVE mg/dL NEGATIVE [facility] URINE BILIRUBIN NEGATIVE NEGATIVE [facility] URINE KETONE NEGATIVE mg/dL NEGATIVE [facility] SPECIFIC GRAVITY,URINE 1.015 1.005-1.030 [facility] URINE BLOOD TRACE NEGATIVE H [facility] PH,URINE 6.0 5.0-9.0 [facility] URINE PROTEIN NEGATIVE mg/dL NEGATIVE [facility] URINE UROBILINOGEN NORMAL(0.2-1) mg/dL 0-1 [facility] URINE NITRATE NEGATIVE NEGATIVE [facility] URINE LEUKOCYTE ESTERASE NEGATIVE NEGATIVE [facility] ID Date Data Source [id number] 02/17/2021 09:11:00 PM EDT [facility] TSYSORDER [id number] Name Value Range Interpretation Code Description Data Zenobia rce(s) Supporting Document(s) PROTHROMBIN TIME (PATIENT) 10.3 SECONDS 9.1-11.6 [facility] INR 0.99 0.87-1.06 [facility] ID Date Data Source [id number] 02/17/2021 08:56:00 PM EDT [facility] TSYSORDER [id number] Name Value Range Interpretation Code Description Data Zenobia rce(s) Supporting Document(s) WHITE BLOOD COUNT 7.0 K/mm3 4.0-10.0 [facility] al RED BLOOD COUNT 4.07 M/mm3 4.00-5.50 [facility] HEMOGLOBIN 13.0 gm/dL 12.0-16.0 [facility] HEMATOCRIT 38.6 % 36.0-48.8 [facility] MEAN CELL VOLUME 94.8 fl 80-96 [facility] MEAN CORPUSCULAR HEMOGLOBIN 31.9 pg 27.0-31.0 H [facility] MEAN CORPUSCULAR HGB CONC 33.7 g/dl 32.0-36.0 [facility] RED CELL DISTRIBUTION WIDTH 13.3 % 10.0-14.5 [facility] PLATELET COUNT 267 K/mm3 172-450 [facility] MEAN PLATELET VOLUME 9.6 fl 9.0-13.0 [facility] pital GRAN % 58.1 % 50-80.0 [facility] IG% 0.3 % 0.0-0.2 H [facility] LYMPH % 31.1 % 25.0-50.0 [facility] MONO % 8.0 % 2.0-10.0 [facility] EOS % 2.1 % 0-5.0 [facility] BASO % 0.4 % 0.0-2.0 [facility] GRAN # 4.1 K/mm3 2.0-8.00 [facility] IG# 0.0 K/mm3 0.0-0.2 [facility] LYMPH # 2.2 K/mm3 1.0-5.0 [facility] MONO # 0.6 K/mm3 0.10-1.20 [facility] EOS # 0.2 K/mm3 0.0-0.5 [facility] BASO # 0.0 K/mm3 0.0-0.2 [facility] ID Date Data Source [id number] 02/13/2021 07:19:00 PM EDT [facility] Name Value Range Interpretation Code Description Data Zenobia rce(s) Supporting Document(s) SARS coronavirus 2 RNA [Presence] in Res piratory specimen by BRENDA with probe detection NEGATIVE [facility] This lab was ordered by [facility] a nd reported by [facility]. ID Date Data Source Comprehensive Metabolic Profile (CMP) 02/13/2021 12:00:00 AM EDT eCW1 ([facility]) Name Value Range Interpretation Code Description Data Zenobia rce(s) Supporting Document(s) 4 7-18 BLOOD UREA NITROGEN eCW1 ([facility]) 0.71 0.55-1.30 CREATININE FOR GFR eCW1 ([facility]) 90 70-100 GLUCOSE, FASTING eCW1 ([facility]) 143 136-145 SODIUM LEVEL eCW1 ([facility]) 109 98-107 CHLORIDE LEVEL eCW1 ([facility]) 4.1 3.5-5.1 POTASSIUM SERUM eCW1 ([facility]) > 60.0 >60 GLOMERULAR FILTRATION RATE eCW 1 ([facility]) 21 12-78 ALT/SGPT eCW1 ([facility] 24 21-32 CARBON DIOXIDE LEVEL [facility]CW[facility] 15 7-37 AST/SGOT eCW1 ([facility]) 8.7 8.5-10.1 CALCIUM LEVEL eCW1 ([facility]) 0.9 0.2-1.0 BILIRUBIN,TOTAL eCW1 ([facility]) 6.0 6.4-8.2 TOTAL PROTEIN eCW1 ([facility]) 91 45-117 ALKALINE PHOSPHATASE eCW1 ([facility]) 3.2 3.2-5.2 ALBUMIN eCW1 ([facility]) 1.1 1.2-2.2 ALBUMIN/GLOBULIN RATIO eCW1 ([facility]) ID Date Data Source CBC - Complete Blood Count 02/13/2021 12:00:00 AM EDT eCW1 ( [facility]) Name Value Range Interpretation Code Description Data Zenobia rce(s) Supporting Document(s) 12.4 12.0-15.5 HEMOGLOBIN eCW1 ([facility]) 37.3 36.0-47.0 HEMATOCRIT eCW1 ([facility]) 7.8 4.0-10.0 WHITE BLOOD COUNT eCW1 ([facility]) 3.79 4.00-5.40 RED BLOOD COUNT eCW1 ([facility]) 14.2 11.5-14.5 RED CELL DISTRIBUTION WID TH eCW1 ([facility]) 33.2 32.0-36.5 MEAN CORPUSCULAR HGB CONC eCW1 ([facility]) 32.7 27.0-33.0 MEAN CORPUSCULAR HEMOGLOB IN eCW1 ([facility]) 98.4 80.0-96.0 MEAN CORPUSCULAR VOLUME e CW1 ([facility]) 279 150-450 PLATELET COUNT, AUTOMATED eCW1 ([facility]) ID Date Data Source TOTAL PROTEIN,RANDOM URINE 02/12/2021 12:00:00 AM EDT eCW1 ( [facility]) Name Value Range Interpretation Code Description Data Zenobia rce(s) Supporting Document(s) < 5.0 0.0-12.0 TOTAL PROTEIN,RANDOM URIN E eCW1 ([facility]) ID Date Data Source CREATININE,RANDOM URINE 02/12/2021 12:00:00 AM EDT [facility] Name Value Range Interpretation Code Description Data Zenobia rce(s) Supporting Document(s) 25.9 CREATININE,RANDOM URINE eCW1 ( [facility]) ID Date Data Source [id number] 11/12/2020 12:00:00 AM EDT [facility] Name Value Range Interpretation Code Description Data Zenobia rce(s) Supporting Document(s) SARS-CoV2 Rapid Antigen [facility] This lab was reported by [facility]. ID Date Data Source [id number] 03/18/2020 10:03:28 AM EDT NextGen ([facility]) Name Value Range Interpretation Code Description Data Zenobia rce(s) Supporting Document(s) NegativeLot: [id number]: 05/30/2021 High Sensitivity Urine Test NextGen ([facility]) ID Date Data Source [id number] 03/18/2020 12:00:00 AM EDT NextGen ([facility]) Name Value Range Interpretation Code Description Data Zenobia rce(s) Supporting Document(s) Negative Normal (applies to non-numer ic results) [place] Amplified CT/GC Combo - GC NextGen ([facility]) : No Performed by: [facility] ([id number]) ID Date Data Source [id number] 03/18/2020 12:00:00 AM EDT NextGen ([facility]) Name Value Range Interpretation Code Description Data Zenobia rce(s) Supporting Document(s) Negative Normal (applies to non-numer ic results) [place] Amplified CT/GC Combo - CT NextGen ([facility]) ID Date Data Source [id number] 02/29/2020 12:00:00 AM EDT [facility] Name Value Range Interpretation Code Description Data Zenobia rce(s) Supporting Document(s) SARS coronavirus 2 RNA [facility] This lab was ordered by [employer] and rep orted by [facility]. Procedure Social History Code Duration Value Status Description Data Source(s ) 03/18/2020 12:00:00 AM EDT Moderate cigarette sm oker (10-19 cigs/day) completed Moderate cigarette smoker (10-19 cigs/day) [facility] ([facility] Smoking 03/18/2020 12:00:00 AM EDT Heavy tobacco smoker comple olga lidia Heavy tobacco smoker [facility] ([facility]) Vital Signs ID Date Data Source [id number] Name Value Range Interpretation Code Description Data Source(s) Body weight 189 [lb_av] 189 [lb_av] eCW1 ([facility]) Body height 61.75 [in_i] 61.75 [in_i] W1 ([facility] Body mass index (BMI) [Ratio] 34.85 kg/m2 34.85 kg/m2 eCW1 ([facility]) Systolic blood pressure 136 mm[Hg] 136 mm[Hg] e CW1 ([facility]) Diastolic blood pressure 78 mm[Hg] 78 mm[Hg] eCW1 ([facility]) Diastolic blood pressure 89 mm[Hg] 89 mm[Hg] [place] ([facility]) Body height 61 [in_i] 61 [in_i] [place] ([facility]) Body mass index (BMI) [Ratio] 35.6 kg/m2 35.6 k g/m2 ABHINAV ([facility]) Systolic blood pressure 142 mm[Hg] 142 mm[Hg] [facility]) Body weight 3016 [oz_av] 3016 [oz_av] ABHINAV ([facility]) Diastolic blood pressure 90 mm[Hg] 90 mm[Hg] ABHINAV ([facility]) Body height 61 [in_i] 61 [in_i] ABHINAV ([facility]) Body mass index (BMI) [Ratio] 35.9 kg/m2 35.9 k g/m2 ABHINAV ([facility]) Systolic blood pressure 145 mm[Hg] 145 mm[Hg] [facility]) Body weight 3043 [oz_av] 3043 [oz_av] ABHINAV ([facility]) Diastolic blood pressure 90 mm[Hg] 90 mm[Hg] ABHINAV ([facility]) Body height 61 [in_i] 61 [in_i] ABHINAV ([facility]) Body mass index (BMI) [Ratio] 35.9 kg/m2 35.9 k g/m2 ABHINAV ([facility]) Systolic blood pressure 145 mm[Hg] 145 mm[Hg] A THENA ([facility]) Body weight 3043 [oz_av] 3043 [oz_av] ABHINAV ([facility]) Diastolic blood pressure 90 mm[Hg] 90 mm[Hg] ABHINAV ([facility]) Diastolic blood pressure 93 mm[Hg] 93 mm[Hg] ABHINAV ([facility]) Body height 61 [in_i] 61 [in_i] ABHINAV ([facility]) Body mass index (BMI) [Ratio] 36.7 kg/m2 36.7 k g/m2 ABHINAV ([facility]) Systolic blood pressure 148 mm[Hg] 148 mm[Hg] A THENA ([facility]) Systolic blood pressure 160 mm[Hg] 160 mm[Hg] A THENA ([facility]) Body weight 3104 [oz_av] 3104 [oz_av] ABHINAV ([facility]) Diastolic blood pressure 90 mm[Hg] 90 mm[Hg] ABHINAV ([facility]) Diastolic blood pressure 93 mm[Hg] 93 mm[Hg] ABHINAV ([facility]) Body height 61 [in_i] 61 [in_i] ABHINAV ([facility]) Body mass index (BMI) [Ratio] 36.7 kg/m2 36.7 k g/m2 ABHINAV ([facility]) Systolic blood pressure 148 mm[Hg] 148 mm[Hg] A THENA ([facility]) Systolic blood pressure 160 mm[Hg] 160 mm[Hg] A THENA ([facility]) Body weight 3104 [oz_av] 3104 [oz_av] ABHINAV ([facility]) Diastolic blood pressure 90 mm[Hg] 90 mm[Hg] ABHINAV ([facility]) Diastolic blood pressure 93 mm[Hg] 93 mm[Hg] ABHINAV ([facility]) Body height 61 [in_i] 61 [in_i] ABHINAV ([facility]) Body mass index (BMI) [Ratio] 36.7 kg/m2 36.7 k g/m2 ABHINAV ([facility]) Systolic blood pressure 148 mm[Hg] 148 mm[Hg] A THENA ([facility]) Systolic blood pressure 160 mm[Hg] 160 mm[Hg] A THENA ([facility]) Body weight 3104 [oz_av] 3104 [oz_av] ABHINAV ([facility]) Body weight 195.2 [lb_av] 195.2 [lb_av] eCW1 ([facility]) Body weight 88.54 kg 88.54 kg eCW1 ([facility]) Body height 61.75 [in_i] 61.75 [in_i] eCW1 ([facility] Body mass index (BMI) [Ratio] 35.99 kg/m2 35.99 kg/m2 eCW1 ([facility]) Systolic blood pressure 132 mm[Hg] 132 mm[Hg] e CW1 ([facility]) Diastolic blood pressure 84 mm[Hg] 84 mm[Hg] eCW1 ([facility]) Body weight 206 [lb_av] 206 [lb_av] eCW1 ([facility]) Body weight 93.44 kg 93.44 kg eCW1 ([facility]) Body height 61.75 [in_i] 61.75 [in_i] eCW1 ([facility] Body mass index (BMI) [Ratio] 37.98 kg/m2 37.98 kg/m2 eCW1 ([facility]) Systolic blood pressure 168 mm[Hg] 168 mm[Hg] e CW1 ([facility]) Diastolic blood pressure 92 mm[Hg] 92 mm[Hg] eCW1 ([facility]) Body weight 206.7 [lb_av] 206.7 [lb_av] eCW1 ([facility]) Body height 61.75 [in_i] 61.75 [in_i] eCW1 ([facility] Body mass index (BMI) [Ratio] 38.11 kg/m2 38.11 kg/m2 eCW1 ([facility]) Systolic blood pressure 120 mm[Hg] 120 mm[Hg] e CW1 ([facility]) Diastolic blood pressure 78 mm[Hg] 78 mm[Hg] eCW1 ([facility]) Body weight 203.6 [lb_av] 203.6 [lb_av] eCW1 ([facility]) Body weight 92.35 kg 92.35 kg eCW1 ([facility]) Body height 61.75 [in_i] 61.75 [in_i] eCW1 [facility] Body mass index (BMI) [Ratio] 37.541 kg/m2 37.5 41 kg/m2 eCW1 ([facility]) Systolic blood pressure 120 mm[Hg] 120 mm[Hg] e CW1 ([facility]) Diastolic blood pressure 80 mm[Hg] 80 mm[Hg] eCW1 ([facility]) Body weight 207 [lb_av] 207 [lb_av] eCW1 ([facility]) Body height 61.75 [in_i] 61.75 [in_i] eCW1 [facility] Body mass index (BMI) [Ratio] 38.168 kg/m2 38.1 68 kg/m2 eCW1 ([facility]) Systolic blood pressure 112 mm[Hg] 112 mm[Hg] e CW1 ([facility]) Diastolic blood pressure 60 mm[Hg] 60 mm[Hg] eCW1 ([facility]) Systolic blood pressure 159 mm[Hg] 159 mm[Hg] M EDENT ([facility]) Diastolic blood pressure 94 mm[Hg] 94 mm[Hg] MEDENT ([facility]) Heart rate 108 /min 108 /min MEDENT ([facility] Respiratory rate 16 /min 16 /min [facility] ( [facility] Oxygen saturation in Arterial blood by Pulse oximetry 98 % 98 % [facility] ([facility]) Body temperature 98.1 [degF] 98.1 [degF] [facility] Body weight 205.00 [lb_av] 205.00 [lb_av] JUAN Canseco ([facility]) Body height 61 [in_i] 61 [in_i] LAKESHIA ([facility]) 5'1" Body mass index (BMI) [Ratio] 38.7 kg/m2 38.7 k g/m2 [facility] ([facility]) Body weight 207.8 [lb_av] 207.8 [lb_av] eCW1 ([facility]) Body weight 94.26 kg 94.26 kg [facility] ([facility]) Body height 61.75 [in_i] 61.75 [in_i] eCW[facility] Body mass index (BMI) [Ratio] 38.315 kg/m2 38.3 15 kg/m2 [facility] ([facility]) Systolic blood pressure 126 mm[Hg] 126 mm[Hg] e CW1 ([facility]) Diastolic blood pressure 80 mm[Hg] 80 mm[Hg] W1 ([facility]) Body weight 210.6 [lb_av] 210.6 [lb_av] eCW1 ([facility]) Body weight 95.53 kg 95.53 kg eCW1 ([facility]) Body height 61.75 [in_i] 61.75 [in_i] eCW[facility] Body mass index (BMI) [Ratio] 38.832 kg/m2 38.8 32 kg/m2 W1 ([facility]) Systolic blood pressure 112 mm[Hg] 112 mm[Hg] e CW1 ([facility]) Diastolic blood pressure 70 mm[Hg] 70 mm[Hg] eCW1 ([facility]) Body height 154.94 cm 154.94 cm [facility] ([facility]) Body weight 90.718 kg 90.718 kg [facility] ([facility]) Systolic blood pressure 102 mm[Hg] 102 mm[Hg] N extGen ([facility]) Diastolic blood pressure 70 mm[Hg] 70 mm[Hg] Next[facility] ([facility]) Body mass index (BMI) [Ratio] 37.79 kg/m2 Overweight 37.79 kg/m2 [facility] ([facility]) Patient Treatment Plan of Care Planned Activity Planned Date Details Description Data Source (s) buspirone hydrochloride 5 MG Oral Tablet 02/19/2021 12:00:00 AM EDT eCW1 ([facility]) buspirone hydrochloride 5 MG Oral Tablet 02/19/2021 12:00:00 AM EDT eCW1 ([facility]) buspirone hydrochloride 5 MG Oral Tablet 02/19/2021 12:00:00 AM EDT eCW1 ([facility]) buspirone hydrochloride 5 MG Oral Tablet 02/19/2021 12:00:00 AM EDT eCW1 ([facility]) buspirone hydrochloride 5 MG Oral Tablet 02/19/2021 12:00:00 AM EDT eCW1 ([facility]) Labetalol hydrochloride 200 MG Oral Tablet 02/12/2021 12:00:00 AM E DT eCW1 ([facility]) medroxyprogesterone acetate 150 MG/ML Injectable Suspe nsion 03/18/2020 12:00:00 AM EDT [facility] ([facility] medroxyprogesterone acetate 150 MG/ML Injectable Suspe nsion 01/12/2019 12:00:00 AM EDT [facility] Labetalol hydrochloride 200 MG Oral Tablet ABHINAV ([facility]) buspirone hydrochloride 5 MG Oral Tablet ABHINAV ([facility]) Amoxicillin 875 MG Oral Tablet ABHINAV ([facility]) Labetalol hydrochloride 200 MG Oral Tablet ABHINAV ([facility]) Amoxicillin 875 MG Oral Tablet ABHINAV ([facility])
[2021-03-20] MEDS ORDERED: NS 1,000 ML IV ONE (11:25)
[2021-03-20] MEDS ORDERED: KETOROLAC 30 MG/ML 1ML VIAL IV ONE (12:00)
[2021-03-20 12:07] LABS: APPEARANCE, URINE CLEAR (CLEAR); BACTERIA, URINE AUTO 1+ (NEGATIVE); BASO % 0.4 % (0.0-1.0); BILIRUBIN, URINE AUTO NEGATIVE (NEGATIVE); BLOOD, URINE BLOOD NEGATIVE (NEGATIVE); COLOR, URINE STRAW (YELLOW); EOS # 0.1 10^3/uL (0.0-0.5); EOS % 0.5 % (0.0-3.0); GLUCOSE, URINE (UA) AUTO NEGATIVE (NEGATIVE); HEMATOCRIT 46.9 % (36.0-47.0); HEMOGLOBIN 15.8 g/dl (12.0-15.5); KETONE, URINE AUTO NEGATIVE (NEGATIVE); LEUKOCYTE ESTERASE, URINE AUTO NEGATIVE (NEGATIVE); LYMPH # 2.3 10^3/uL (1.5-5.0); LYMPH % 24.6 % (24.0-44.0); MEAN CORPUSCULAR HEMOGLOBIN 31.4 pg (27.0-33.0); MEAN CORPUSCULAR HGB CONC 33.7 g/dl (32.0-36.5); MEAN CORPUSCULAR VOLUME 93.2 fl (80.0-96.0); MONO # 0.5 10^3/uL (0.0-0.8); MONO % 5.5 % (2.0-8.0); NEUTROPHILS # 6.3 10^3/uL (1.5-8.5); NEUTROPHILS % 68.6 % (36.0-66.0); NITRITE, URINE AUTO NEGATIVE (NEGATIVE); PLATELET COUNT, AUTOMATED 270 10^3/uL (150-450); PROTEIN, URINE AUTO NEGATIVE (NEGATIVE); RBC, URINE AUTO 0 /HPF (0-3); RED BLOOD COUNT 5.03 10^6/uL (4.00-5.40); SPECIFIC GRAVITY URINE AUTO 1.002 (1.002-1.035); SQUAMOUS EPITHELIAL CELL UR AU 4 /HPF (0-6); UROBILINOGEN, URINE AUTO 0.2 mg/dL (0.0-2.0); WBC, URINE AUTO 0 /HPF (0-3); WHITE BLOOD COUNT 9.2 10^3/uL (4.0-10.0)
--- NOTE | 2021-03-20 12:11 | REP ---
INDICATION: RUQ pain with diarrhea. COMPARISON: None. TECHNIQUE: Real-time sonographic evaluation of right upper quadrant performed. FINDINGS: The gallbladder demonstrates no evidence of intraluminal sludge or calculi, wall thickening or pericholecystic fluid. There is no intrahepatic or extrahepatic biliary dilatation, common bile duct measures 4 mm in maximum diameter. The liver demonstrates homogeneous echotexture with no gross mass. The visualized pancreas is grossly unremarkable, not well seen due to overlying bowel gas. The right kidney demonstrates no hydronephrosis, with a normal size of 11.0 cm in length. No free fluid is seen. IMPRESSION: Negative right upper quadrant ultrasound. <Electronically signed by Dylan Bryant > 03/20/21 [id number]
[2021-03-20 12:36] LABS: ALBUMIN 4.1 GM/DL (3.2-5.2); ALT/SGPT 20 U/L (12-78); BILIRUBIN,DIRECT 0.2 MG/DL (0.0-0.2); BLOOD UREA NITROGEN 4 MG/DL (7-18); CALCIUM LEVEL 9.4 MG/DL (8.5-10.1); CARBON DIOXIDE LEVEL 25 MEQ/L (21-32); CHLORIDE LEVEL 108 MEQ/L (98-107); CREATININE FOR GFR 0.76 MG/DL (0.55-1.30); GLOMERULAR FILTRATION RATE > 60.0 (>60); GLUCOSE, FASTING 90 MG/DL (70-100); LIPASE 90 U/L (73-393); POTASSIUM SERUM 3.8 MEQ/L (3.5-5.1); SODIUM LEVEL 139 MEQ/L (136-145); TOTAL PROTEIN 7.2 GM/DL (6.4-8.2)
[2021-03-20] MEDS ORDERED: ISOVUE-370 76% 100ML VIAL As Ordered ONE (13:03)
--- NOTE | 2021-03-20 13:20 | REP ---
INDICATION: RUQ pain, neg US. COMPARISON: None. TECHNIQUE: Standard helical technique after the intravenous administration of 100 cc Isovue 370. FINDINGS: The lung bases are clear. The liver, gallbladder, spleen, pancreas, adrenal glands, and kidneys are within normal limits. The abdominal aorta and para-aortic regions are within normal limits. The bowel loops and the mesenteries are within normal limits. There is no evidence of a mass or adenopathy. There is no free fluid or free air. Bone window technique throughout the exam shows the osseous structures to be within normal limits. IMPRESSION: CT findings are within normal limits. <Electronically signed by Woo Yang > 03/20/21 [id number]
[2021-03-20 15:06] VITALS: BP 134/84
== END 2021-03-20 15:16 | disposition home or self-care (01) ==
LOC: M ED 10:37
DX: K80.20 Calculus of gallbladder without cholecystitis without obstruction (principal); I10 Essential (primary) hypertension; J45.909 Unspecified asthma, uncomplicated; F41.9 Anxiety disorder, unspecified; Z88.1 Allergy status to other antibiotic agents; Z88.2 Allergy status to sulfonamides; F17.210 Nicotine dependence, cigarettes, uncomplicated
CPT/HCPCS: 74177; 76705; 80048; 80076; 81001; 83690; 84702; 85025; 96361; 96374; 99284; J1885; Q9967

== ENCOUNTER → 2021-07-17 | Outpatient (REF) | payer OTHER, MEDICAID | LOC: M WUC 20:16 | PROVIDERS: ATTEND Physician Assistant | DX: R35.0 Frequency of micturition (principal) ==

== ENCOUNTER → 2021-07-31 | Outpatient (CLI) | payer OTHER ==
[~2021-07-31] MED LIST changes: +LABE200T3 PO; -LABE200T32 PO
== END ==
LOC: M RAD 07:48
PROVIDERS: ATTEND Family Medicine Addiction Medicine
DX: K80.50 Calculus of bile duct without cholangitis or cholecystitis without obstruction (principal)
CPT/HCPCS: 78227; A9537

== ENCOUNTER → 2022-04-13 | Outpatient (REF) | payer OTHER, MEDICAID ==
[~2022-04-13] MED LIST changes: -LABE200T3 PO; +LABE200T5 PO
== END ==
LOC: M LAB REF 17:07
PROVIDERS: ATTEND Nurse Practitioner Family
DX: R39.9 Unspecified symptoms and signs involving the genitourinary system (principal)

== ENCOUNTER → 2022-10-23 | Outpatient (REF) | payer OTHER, MEDICAID ==
[2022-10-23 18:16] LABS: ALBUMIN 3.8 G/DL (3.2-5.2); ALKALINE PHOSPHATASE 107 U/L (46-116); ALT/SGPT 19 U/L (7.0-40); AST/SGOT 15 U/L (<34); BILIRUBIN,TOTAL 0.7 MG/DL (0.3-1.2); BLOOD UREA NITROGEN < 5 MG/DL (9-23); CALCIUM LEVEL 9.1 MG/DL (8.5-10.1); CARBON DIOXIDE LEVEL 26 MMOL/L (20-31); CHLORIDE LEVEL 107 MMOL/L (98-107); CHOLESTEROL LEVEL 154 MG/DL (<200); CHOLESTEROL RISK RATIO 4.08 (<5); CREATININE FOR GFR 0.76 MG/DL (0.55-1.30); FREE T4 1.17 NG/DL (0.89-1.76); GLOMERULAR FILTRATION RATE > 60.0 (>60); GLUCOSE, FASTING 71 MG/DL (60-100); HDL CHOLESTEROL 37.7 MG/DL (>40); LDL CHOLESTEROL 96.5 MG/DL (<100); NON-HDL-C 116.3 MG/DL; POTASSIUM SERUM 4.3 MMOL/L (3.5-5.1); SODIUM LEVEL 140 MMOL/L (136-145); THYROID STIMULATING HORMONE 1.853 uIU/ML (0.55-4.78); TOTAL PROTEIN 6.6 G/DL (5.7-8.2); TRIGLYCERIDES LEVEL 99 MG/DL (<150)
== END ==
LOC: M LAB REF 16:09
PROVIDERS: ATTEND Family Medicine Addiction Medicine
DX: R03.0 Elevated blood-pressure reading, without diagnosis of hypertension (principal)